=== PATIENT | female | born 2000 | race Caucasian/White ===

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

== ENCOUNTER 2021-06-11 23:17 | Emergency (ER) | payer OTHER, MEDICAID, SELFPAY ==
[2021-06-11 23:29] VITALS: BP 140/90; PULSE 92; RESP 18; TEMP 36.1; O2SAT 96
--- NOTE | 2021-06-12 00:04 | ED.NAVMDI ---
HPI - Nausea/Vomiting/Diarrhea General Chief complaint: Nausea/Vomiting/Diarrhea Stated complaint: nausea/vomiting Time Seen by Provider: 06/11/21 23:35 Source: patient Mode of arrival: Ambulatory History of Present Illness HPI Narrative: 21F nonsmoker with history of cyclic vomiting and cannabis hyperemesis presents with family in the chief complaint of multiple episodes of vomiting over the past few days. She denies any fever chills. She has had no change in medications or diet. She is feeling fatigued and worn out. She has generalized abdominal discomfort. She denies any constipation or diarrhea. She denies dysuria, frequency or urgency. She has had no recent trauma or injury. Related Data Home Medications Medication Instructions Recorded Confirmed bupropion HCl 75 mg tablet 2 tab PO BID #0 07/10/17 12/11/18 trazodone 50 mg tablet PO HS #0 07/10/17 ondansetron 4 mg disintegrating 4 mg SUBLINGUAL Q6HP PRN 12/11/18 12/11/18 tablet (Zofran ODT) Previous Rx's Medication Instructions Recorded ondansetron 4 mg disintegrating 4 mg PO Q6-8H PRN #10 tab 12/11/18 tablet metoclopramide HCl 10 mg tablet 10 mg PO Q6H PRN #20 tab 12/18/18 multivit no.42-iron 38 1 cap PO DAILY #30 cap 01/27/19 mg-methyltetrahydfolate 1 mg-dha 225 mg capsule ondansetron 4 mg disintegrating 4 mg PO Q8H #14 tab 02/11/19 tablet ondansetron 4 mg disintegrating 4 mg PO TID-QID PRN #10 tab 06/12/21 tablet promethazine 25 mg rectal 25 mg SC Q4-6H PRN #12 ea 06/12/21 suppository Allergies Allergy/AdvReac Type Severity Reaction Status Date / Time No Known Allergies Allergy Uncoded 12/11/18 03:29 Patient History Medical History (Updated 06/12/21 @ 04:03 by Hermilo Glass DO) Cannabis hyperemesis syndrome concurrent with and due to cannabis abuse Social History Smoking Status: Never smoker alcohol intake: current substance use type: marijuana Smoking Status: Never smoker alcohol intake frequency: 0-2 drinks per day Substance Use Type: marijuana Exam Narrative Exam Narrative: GENERAL: [21 year old patient appears stated age. Well-developed patient, in mild distress. Clearly not feeling well, holding an emesis bag HEAD: Atraumatic. Normocephalic. EYES: Pupils equal round and reactive. Extraocular motions intact. No scleral icterus. No injection or drainage. ENT: Nose without bleeding, purulent drainage. Throat without erythema, tonsillar hypertrophy or exudate. Airway patent. NECK: Trachea midline. Non tender CARDIOVASCULAR: Regular rate and rhythm without murmurs, gallops, or rubs. RESPIRATORY: Clear to auscultation. Breath sounds equal bilaterally. No wheezes, rales, or rhonchi. GASTROINTESTINAL: Abdomen soft, non-tender, nondistended. EXTREMITIES: No edema or joint tenderness. BACK: Nontender without deformity or crepitance. No flank tenderness. NEURO: AOx3. SKIN: No rash or erythema of visible areas Initial Vital Signs Initial Vital Signs: Vital Signs Temperature 97 F L 06/11/21 23:29 Pulse Rate 92 H 06/11/21 23:29 Respiratory Rate 18 06/11/21 23:29 Blood Pressure 140/90 06/11/21 23:29 Pulse Oximetry 96 06/11/21 23:29 Course Orders Ordered: ED Orders 06/11/21 23:44 Complete Blood Count AUTO DIFF Stat Comprehensive Metabolic Panel Stat Lipase Stat EKG-12 Lead Stat Discontinued Medications Haloperidol (Haloperidol 5 Mg/Ml Vial) 2 mg IV NOW ONE Stop: 06/12/21 02:59 Last Admin: 06/12/21 03:03 Dose: 2 mg Documented by: MANDI Sodium Chloride (Normal Saline 0.9%) 1,000 mls @ 1,000 mls/hr IV BOLUS ONE Stop: 06/12/21 02:22 Last Infusion: 06/12/21 02:40 Dose: 0 mls/hr Documented by: Admin: 06/12/21 01:38 Dose: 1,000 mls/hr Documented by: MANDI Ondansetron HCl (Ondansetron 4 Mg/2 Ml Inj) 4 mg IV NOW ONE Stop: 06/12/21 01:24 Last Admin: 06/12/21 01:38 Dose: 4 mg Documented by: MANDI Ondansetron HCl (Ondansetron 4 Mg Odt Prepack) 1 bottle MISC SEEINSTR ONE Stop: 06/12/21 03:57 Last Admin: 06/12/21 04:07 Dose: 1 bottle Documented by: Pantoprazole Sodium (Pantoprazole 40 Mg Vial) 40 mg IV NOW ONE Stop: 06/12/21 01:24 Last Admin: 06/12/21 01:38 Dose: 40 mg Documented by: MANDI Reevaluation(s) Reevaluation #1: Patient has significant if not complete resolution of symptoms after above-stated therapies. Vital Signs Vital signs: Vital Signs - 8 hr 06/11/21 23:29 Temperature 97 F L Pulse Rate 92 H Respiratory Rate 18 Blood Pressure 140/90 Pulse Oximetry 96 MDM - Nausea/Vomiting/Diarrhea Lab Data Attestation: I reviewed the patient's lab results. Result diagrams: 06/12/21 00:10 06/12/21 00:10 Labs: Lab Results 06/12/21 06/12/21 Range/Units 00:10 00:10 WBC 10.6 (4.5-11.0) X10^3/uL RBC 5.68 H (4.0-5.2) X10^6/uL Hgb 16.5 H (12.0-16.0) g/dL Hct 47.7 H (36-46) % MCV 84.0 (80-100) fL MCH 29.0 (26-34) PG MCHC 34.6 (30-36) % RDW 13.5 (11.6-14.8) % Plt Count 333 (150-400) X10^3/uL Neut % (Auto) 77.4 H (50-75) % Lymph % (Auto) 11.1 L (25-40) % [place] % (Auto) 9.3 (3-14) % Eos % (Auto) 0.1 L (2-4) % Baso % (Auto) 2.1 H (0-2) % Neut # (Auto) 8200 H (4961-5484) /uL Lymph # (Auto) 1200 (6648-4535) /uL [place] # (Auto) 1000 H (0-900) /uL Eos # (Auto) 0 (0-450) /uL Baso # (Auto) 200 H (0-100) /uL Sodium 134 L (137-145) mmol/L Potassium 3.3 L (3.4-5.1) mmol/L Chloride 90 L (98-107) mmol/L Carbon Dioxide 34 H (22-32) mmol/L BUN 20 H (7-17) mg/dL Creatinine 0.85 (0.52-1.04) mg/dL Estimated GFR > 60.0 (>60) mL/min BUN/Creatinine Ratio 23.5 H (6-22) Glucose 117 H (70-100) mg/dL Calcium 9.9 (8.4-10.2) mg/dL Total Bilirubin 2.4 H (0.2-1.3) mg/dL AST 29 (14-36) IU/L ALT 18 (<35) IU/L Alkaline Phosphatase 65 (38-126) U/L Total Protein 9.5 H (6.3-8.2) g/dL Albumin 5.2 H (3.5-5.0) g/dL Globulin 4.3 H (1.7-4.1) g/dL Albumin/Globulin Ratio 1.2 (1.0-2.8) Lipase 87 (23-300) U/L Discharge Plan Departure Patient Disposition: Home Clinical Impression: Cyclic vomiting syndrome Instructions: Nausea and Vomiting-Adult Activity Restrictions/Additional Instructions: *You have been diagnosed with [nausea and vomiting. Your history and physical exam are very reassuring as are her vital signs, labs and response to therapies. *What to do: *Please continue to take your regular medications as directed. [ x] New medication prescriptions sent to your pharmacy: [[facility]] [ ] New medication written as a paper prescription [ ] No new medications given *Please follow up with your primary care provider in 2-3 days, call for an appointment. Let them know you were seen in the Emergency Department and that we ask that you be seen in follow up. We will electronically transmit a record of today's note if your PCP is in our system *Please consider a clear liquid diet for the next 24-48 hours and then advance slowly as tolerated *If you do not have a primary care provider please contact the [facility] Resource line at [phone]. They will ask some questions about your medical history and help get you set up with a doctor in the community. *Return to Emergency Department if you should have any new, worsening or concerning symptoms, such as [fever greater than 101 F, shaking chills, worsening pain, persistent vomiting or other bothersome symptoms] Prescriptions: New ondansetron 4 mg tablet,disintegrating 4 mg PO TID-QID PRN (Reason: nausea and vomiting) Qty: 10 0RF promethazine 25 mg suppository 25 mg SC Q4-6H PRN (Reason: nausea and vomiting) Qty: 12 0RF No Action bupropion HCl 75 MG tablet 2 tab PO BID Qty: 0 0RF trazodone 50 MG tablet PO HS Qty: 0 0RF ondansetron 4 mg tablet,disintegrating 4 mg PO Q8H Qty: 14 0RF ondansetron [Zofran ODT] 4 MG tablet,disintegrating 4 mg Sublingual Q6HP PRN (Reason: Vomiting) 0RF ondansetron 4 mg tablet,disintegrating 4 mg PO Q6-8H PRN (Reason: nausea and vomiting) Qty: 10 0RF metoclopramide HCl 10 mg tablet 10 mg PO Q6H PRN (Reason: nausea and vomiting) Qty: 20 0RF multivit no.29-lsdu-aytmiv-dha 38-1-225 mg capsule 1 cap PO DAILY Qty: 30 0RF Referrals: Davi Thompson MD [Primary Care Provider] -
[2021-06-12 00:38] LABS: Add Manual Diff / Slide Review NO; Basophils Absolute Auto 200 /uL (0-100); Basophils Percent Auto 2.1 % (0-2); Eosinophils Absolute Auto 0 /uL (0-450); Eosinophils Percent Auto 0.1 % (2-4); Hematocrit 47.7 % (36-46); Hemoglobin 16.5 g/dL (12.0-16.0); Lymphocytes Absolute Auto 1200 /uL (1100-4500); Lymphocytes Percent Auto 11.1 % (25-40); Mean Corpuscular HGB Conc 34.6 % (30-36); Monocytes Absolute Auto 1000 /uL (0-900); Monocytes Percent Auto 9.3 % (3-14); Neutrophils Absolute Auto 8200 /uL (1500-7000); Neutrophils Percent Auto 77.4 % (50-75); Platelet Count 333 X10^3/uL (150-400); Red Blood Cell Count 5.68 X10^6/uL (4.0-5.2); Red Cell Distribution Width 13.5 % (11.6-14.8); White Blood Cell Count 10.6 X10^3/uL (4.5-11.0)
[2021-06-12 00:56] LABS: Alanine Aminotransferase 18 IU/L (<35); Albumin 5.2 g/dL (3.5-5.0); Albumin Globulin Ratio 1.2 (1.0-2.8); Alkaline Phosphatase 65 U/L (38-126); Aspartate Aminotransferase 29 IU/L (14-36); BUN Creatinine Ratio 23.5 (6-22); Bilirubin Total 2.4 mg/dL (0.2-1.3); Blood Urea Nitrogen 20 mg/dL (7-17); Calcium 9.9 mg/dL (8.4-10.2); Carbon Dioxide 34 mmol/L (22-32); Chloride 90 mmol/L (98-107); Estimated Glomerular Filt Rate > 60.0 mL/min (>60); Globulin 4.3 g/dL (1.7-4.1); Glucose 117 mg/dL (70-100); HEMOLYSIS 29 (0-50); Lipase 87 U/L (23-300); Potassium 3.3 mmol/L (3.4-5.1); Sodium 134 mmol/L (137-145); Total Protein 9.5 g/dL (6.3-8.2)
[2021-06-12] MEDS: SODIUM CHLORIDE 0.9% 1,000 ML 1000 ML IV (01:38)
[2021-06-12] MEDS: ONDANSETRON 4 MG/2 ML INJ IV (01:38)
[2021-06-12] MEDS: PANTOPRAZOLE 40 MG VIAL IV (01:38)
[2021-06-12] MEDS: HALOPERIDOL 5 MG/ML VIAL 2 MG IV (03:03)
[2021-06-12] MEDS: ONDANSETRON 4 MG ODT PREPACK 1 BOTTLE MISC (04:07)
[2021-06-12 04:16] VITALS: BP 135/86; PULSE 89; RESP 18; O2SAT 97
== END 2021-06-12 04:18 | disposition home or self-care (01) ==
PROVIDERS: Emergency Provider Emergency Medicine; PCP Internal Medicine
DX: R11.15 Cyclical vomiting syndrome unrelated to migraine (principal)
CPT/HCPCS: 36415; 80053; 83690; 85025; 93005; 93010; 96361; 96374; 96375; 99284; C9113; J1630; J2405

== ENCOUNTER 2021-10-03 10:08 | Emergency (ER) | payer OTHER, MEDICAID, SELFPAY ==
[2021-10-03 10:18] VITALS: PULSE 74; O2SAT 98
[2021-10-03 10:19] VITALS: PULSE 76; O2SAT 98
[2021-10-03 10:23] VITALS: BP 159/100; PULSE 70; RESP 18; TEMP 36.4; O2SAT 99
[2021-10-03 10:34] VITALS: BP 147/97
--- NOTE | 2021-10-03 11:00 | ED.NAVMDI ---
HPI - Nausea/Vomiting/Diarrhea General Chief complaint: Nausea/Vomiting/Diarrhea Stated complaint: Vomiting for 6 days,feels like uterus is falling Time Seen by Provider: 10/03/21 10:25 Source: patient Mode of arrival: Family Vehicle History of Present Illness HPI Narrative: 21-year-old female who is here for evaluation of several days/weeks of nausea and vomiting. Patient was seen in outside facility yesterday. Was told that she was . She states there was a bedside ultrasound done. She states that she is been vomiting for several days. She is been sleeping in the shower because had his the only thing that helps her symptoms. She does smoke marijuana on a daily basis. She also states that she feels like her uterus is falling out of her. This has been going on since May. She has seen her primary doctor for this and was told that everything was okay. She was given Zofran and Reglan yesterday without any improvement of symptoms. Was sent home with this medication and has been taking it but also reports no improvement. Related Data Home Medications Medication Instructions Recorded Confirmed bupropion HCl 75 mg tablet 2 tab PO BID ##0 07/10/17 12/11/18 trazodone 50 mg tablet PO HS ##0 07/10/17 ondansetron 4 mg disintegrating 4 mg sublingual Q6HP PRN Vomiting 12/11/18 12/11/18 tablet (Zofran ODT) Previous Rx's Medication Instructions Recorded ondansetron 4 mg disintegrating 4 mg PO Q6-8H PRN nausea and 12/11/18 tablet vomiting #10 tabs metoclopramide HCl 10 mg tablet 10 mg PO Q6H PRN nausea and 12/18/18 vomiting #20 tabs multivit no.42-iron 38 1 cap PO DAILY #30 caps 01/27/19 mg-methyltetrahydfolate 1 mg-dha 225 mg capsule ondansetron 4 mg disintegrating 4 mg PO Q8H Nausea vomiting #14 02/11/19 tablet tabs ondansetron 4 mg disintegrating 4 mg PO TID-QID PRN nausea and 06/12/21 tablet vomiting #10 tabs promethazine 25 mg rectal 25 mg HI Q4-6H PRN nausea and 06/12/21 suppository vomiting #12 ea Allergies Allergy/AdvReac Type Severity Reaction Status Date / Time No Known Allergies Allergy Verified 10/03/21 11:08 Review of Systems Constitutional Constitutional: Denies fever(s) Cardiovascular Cardiovascular: Reports chest pain and Reports dyspnea Respiratory Respiratory: Reports dyspnea Gastrointestinal Gastrointestinal: Reports abdominal pain, Reports diarrhea, Reports nausea and Reports vomiting Genitourinary Genitourinary: Reports system reviewed and no additional complaints, except as documented Integumentary/Breasts Skin/Breast: Reports system reviewed and no additional complaints, except as documented Psychiatric Psychiatric: Reports system reviewed and no additional complaints, except as documented Hematologic/Lymphatic On Anticoagulants: No Patient History Medical History (Updated 10/03/21 @ 13:20 by Davide Anderson DO) Cannabis hyperemesis syndrome concurrent with and due to cannabis abuse Social History Smoking Status: Current every day smoker alcohol intake: current substance use type: marijuana Smoking Status: Current every day smoker tobacco type: cigarettes and vaping alcohol intake frequency: 0-2 drinks per day Alcohol type: hard liquor Substance Use Type: marijuana Exam Initial Vital Signs Initial Vital Signs: Vital Signs Pulse Rate 74 10/03/21 10:18 Pulse Oximetry 98 10/03/21 10:18 Const General: cooperative and comfortable HENMT Head: normal to inspection and normocephalic Resp Effort & Inspection: normal respiratory effort Auscultation: clear to auscultation bilaterally Cardio Rate: regular rate Rhythm: regular rhythm GI Inspection: normal to inspection Other: On exam there is no uterine prolapse. Cervix is closed. Rest of her vaginal exam is unremarkable Skin General: no rashes or lesions noted Neuro General: patient alert, patient awake and moves all extremities Extrem General: normal to inspection Psych Appearance: grossly normal Mood: anxious mood Course Orders Ordered: ED Orders 10/03/21 11:01 US OB <= 14 weeks fetus Stat 10/03/21 11:40 ABO RH Type Stat Complete Blood Count AUTO DIFF Stat Comprehensive Metabolic Panel Stat HCG Quantitative /Beta subunit Stat Lipase Stat Test Serum,Qual Stat 10/03/21 12:08 Urine Culture Stat Urine Microscopic Stat Discontinued Medications Sodium Chloride (Normal Saline 0.9%) 1,000 mls @ 1,000 mls/hr IV BOLUS ONE Stop: 10/03/21 11:59 Last Admin: 10/03/21 11:44 Dose: 1,000 mls/hr Documented By: AT Ondansetron HCl (Ondansetron 4 Mg/2 Ml Inj) 4 mg IV NOW ONE Stop: 10/03/21 11:01 Last Admin: 10/03/21 11:43 Dose: 4 mg Documented By: AT Vital Signs Vital signs: Vital Signs - 8 hr 10/03/21 10:23 10/03/21 10:18 10/03/21 10:19 Temperature 97.5 F L Pulse Rate 70 74 76 Respiratory Rate 18 Blood Pressure 159/100 H Pulse Oximetry 99 98 98 Oxygen Delivery Method Room Air 10/03/21 10:34 10/03/21 12:01 10/03/21 12:30 Temperature Pulse Rate 59 L 59 L Respiratory Rate Blood Pressure 147/97 H Pulse Oximetry 96 100 Oxygen Delivery Method Room Air Room Air MDM - Nausea/Vomiting/Diarrhea Lab Data Attestation: I reviewed the patient's lab results. Result diagrams: 10/03/21 11:40 10/03/21 11:40 Labs: Lab Results 10/03/21 10/03/21 10/03/21 Range/Units 11:40 11:40 11:40 WBC 13.2 H (4.5-11.0) X10^3/uL RBC 4.90 (4.0-5.2) X10^6/uL Hgb 14.3 (12.0-16.0) g/dL Hct 40.7 (36-46) % MCV 83.0 (80-100) fL MCH 29.2 (26-34) PG MCHC 35.2 (30-36) % RDW 13.0 (11.6-14.8) % Plt Count 264 (150-400) X10^3/uL Neut % (Auto) 78.8 H (50-75) % Lymph % (Auto) 13.0 L (25-40) % [place] % (Auto) 7.9 (3-14) % Eos % (Auto) 0.0 L (2-4) % Baso % (Auto) 0.3 (0-2) % Neut # (Auto) 75130 H (3796-6691) /uL Lymph # (Auto) 1700 (3350-4371) /uL [place] # (Auto) 1000 H (0-900) /uL Eos # (Auto) 0 (0-450) /uL Baso # (Auto) 0 (0-100) /uL Sodium 134 L (137-145) mmol/L Potassium 3.2 L (3.4-5.1) mmol/L Chloride 99 (98-107) mmol/L Carbon Dioxide 26 (22-32) mmol/L BUN 9 (7-17) mg/dL Creatinine 0.62 (0.52-1.04) mg/dL Estimated GFR > 60 (>60) mL/min BUN/Creatinine Ratio 14.5 (6-22) Glucose 102 H (70-100) mg/dL Calcium 9.2 (8.4-10.2) mg/dL Total Bilirubin 1.7 H (0.2-1.3) mg/dL AST 45 H (14-36) IU/L ALT 50 H (<35) IU/L Alkaline Phosphatase 52 (38-126) U/L Total Protein 7.9 (6.3-8.2) g/dL Albumin 4.5 (3.5-5.0) g/dL Globulin 3.4 (1.7-4.1) g/dL Albumin/Globulin Ratio 1.3 (1.0-2.8) Lipase 105 (23-300) U/L HCG, Quant mIU/mL Serum , Qual (Negative) Urine RBC (0-5/HPF) Urine WBC (0-5/HPF) Ur Squamous Epith Cells (0-5/HPF) Amorphous Sediment Urine Bacteria (None) Urine Mucus (Negative) Ur Culture Indicated? Blood Type O Positive 10/03/21 10/03/21 10/03/21 Range/Units 11:40 11:40 12:08 WBC (4.5-11.0) X10^3/uL RBC (4.0-5.2) X10^6/uL Hgb (12.0-16.0) g/dL Hct (36-46) % MCV (80-100) fL MCH (26-34) PG MCHC (30-36) % RDW (11.6-14.8) % Plt Count (150-400) X10^3/uL Neut % (Auto) (50-75) % Lymph % (Auto) (25-40) % [place] % (Auto) (3-14) % Eos % (Auto) (2-4) % Baso % (Auto) (0-2) % Neut # (Auto) (7222-8617) /uL Lymph # (Auto) (7274-5110) /uL [place] # (Auto) (0-900) /uL Eos # (Auto) (0-450) /uL Baso # (Auto) (0-100) /uL Sodium (137-145) mmol/L Potassium (3.4-5.1) mmol/L Chloride (98-107) mmol/L Carbon Dioxide (22-32) mmol/L BUN (7-17) mg/dL Creatinine (0.52-1.04) mg/dL Estimated GFR (>60) mL/min BUN/Creatinine Ratio (6-22) Glucose (70-100) mg/dL Calcium (8.4-10.2) mg/dL Total Bilirubin (0.2-1.3) mg/dL AST (14-36) IU/L ALT (<35) IU/L Alkaline Phosphatase (38-126) U/L Total Protein (6.3-8.2) g/dL Albumin (3.5-5.0) g/dL Globulin (1.7-4.1) g/dL Albumin/Globulin Ratio (1.0-2.8) Lipase (23-300) U/L HCG, Quant 384815 mIU/mL Serum , Qual Positive H (Negative) Urine RBC None seen (0-5/HPF) Urine WBC 1-5/hpf (0-5/HPF) Ur Squamous Epith Cells 1-5 /hpf (0-5/HPF) Amorphous Sediment 1+ Urine Bacteria Many (>30) H (None) Urine Mucus 1+ H D (Negative) Ur Culture Indicated? Cult not indicated Blood Type Urine Dip Bedside Urine Glucose Negative Bedside Urine Bilirubin - Negative Bedside Urine Ketone + 15 Urine Specific [place] 1.010 Bedside Urine Occult Blood - Negative Bedside Urine pH 7.0 Bedside Urine Protein + 30 Bedside Urine Urobilinogen 2+ 4mg Bedside Urine Nitrite - Negative Bedside Urine Leukocytes - Negative Esterase Imaging Data US - OB: Radiologist's Impression: [address] [address] Ultrasound Report Signed Patient: Sherly Powers MR#: [id number] : 2000 Acct:[id number] Age/Sex: 21 / F Date of Service: 10/03/21 Loc: ED Accession Number: [id number] ?? Procedure: US OB <= 14 weeks fetus Ordering Provider: Davide Anderson D.O. PROCEDURE:? US OB <= 14 WEEKS FETUS ? INDICATIONS:? hcg pos with pelvic pain UKN dates ? OUTSIDE/PRIOR DATING DATA:? Last menstrual period (LMP):? Unknown.? LMP-based estimated date of delivery (RAY):? Unknown.? First dating scan (date and location):? 10/03/2021 ? TECHNIQUE:? Real-time scanning was performed of the fetus and maternal pelvic organs, with image documentation.? Endovaginal scanning was also performed to better visualize the fetus and maternal ovaries.? ? COMPARISON:? None. ? FINDINGS:? ? Embryo:? [place]-rump length measures 3.8 cm corresponding with 10 weeks 5 days.? No subchorionic hemorrhage is identified. ? Heart rate:? 173 beats per minute ? Maternal organs:? The right ovary has a corpus luteal cyst. ? ? IMPRESSION:? 1. Live intrauterine with a composite ultrasound age of 10 weeks 5 days by crown-rump length. 2. No subchorionic hemorrhage.? ? We strive to produce accurate, complete, and clear reports of imaging services. To assist us in improving patient care, this report was composed using standard report templates and voice recognition software. Therefore, it may contain abnormal punctuation, insertions and/or omissions. Occasional wrong-word or sound-alike substitutions may occur. Though we review the report and make efforts to correct it, we do recommend that the report be read carefully in proper context to recognize any text inaccuracies. ? Dictated by: Beau Millard M.D. on 10/03/2021 at 11:45 ? ? Approved by: Beau Millard M.D. on 10/03/2021 at 11:48 MDM Narrative Medical decision making narrative: Patient did feel better after Zofran and fluids although she did have some continued episodes of retching after this. She stated that she did feel hungry. Ultrasound today does show that she is and has 10 weeks 5 day live intrauterine . She was informed of this. She has a follow-up with OB in approximately 2 weeks from now. This is her 3rd . She has had issues with hyperemesis with in the past and smoking marijuana is not helping her symptoms. She was informed of this. She has Reglan and Zofran and Phenergan suppositories at home. No indication for admission to the hospital. Discharge Plan Departure Patient Disposition: Home Clinical Impression: , Nausea and vomiting during Instructions: Nausea and Vomiting-Adult Activity Restrictions/Additional Instructions: The ultrasound today did show that you are and are approximately 10 weeks and 5 days along. It is important that you stay as hydrated as possible. Sure that you are drinking small amounts of fluid over longer periods of time and using a nausea medicine that you have at home to try to help with this. Keep your scheduled OB appointment that you have on the of this month. I do recommend that you consider stopping smoking marijuana has this could be causing or worsening the symptoms that you are having. Return to the emergency department for any new symptoms. Prescriptions: No Action bupropion HCl 75 MG tablet 2 tab PO BID Qty: 0 trazodone 50 MG tablet PO HS Qty: 0 ondansetron 4 mg tablet,disintegrating 4 mg PO Q8H Qty: 14 0RF ondansetron 4 mg tablet,disintegrating 4 mg PO TID-QID PRN (Reason: nausea and vomiting) Qty: 10 0RF promethazine 25 mg suppository 25 mg HI Q4-6H PRN (Reason: nausea and vomiting) Qty: 12 0RF ondansetron [Zofran ODT] 4 MG tablet,disintegrating 4 mg Sublingual Q6HP PRN (Reason: Vomiting) ondansetron 4 mg tablet,disintegrating 4 mg PO Q6-8H PRN (Reason: nausea and vomiting) Qty: 10 0RF metoclopramide HCl 10 mg tablet 10 mg PO Q6H PRN (Reason: nausea and vomiting) Qty: 20 0RF multivit no.[id number] 38-1-225 mg capsule 1 cap PO DAILY Qty: 30 0RF Referrals: Davi Thompson MD [Primary Care Provider] -
--- NOTE | 2021-10-03 11:01 | DI.US.S_ITS ---
PROCEDURE: US OB <= 14 WEEKS FETUS INDICATIONS: hcg pos with pelvic pain UKN dates OUTSIDE/PRIOR DATING DATA: Last menstrual period (LMP): Unknown. LMP-based estimated date of delivery (RAY): Unknown. First dating scan (date and location): 10/03/2021 TECHNIQUE: Real-time scanning was performed of the fetus and maternal pelvic organs, with image documentation. Endovaginal scanning was also performed to better visualize the fetus and maternal ovaries. COMPARISON: None. FINDINGS: Embryo: [place]-rump length measures 3.8 cm corresponding with 10 weeks 5 days. No subchorionic hemorrhage is identified. Heart rate: 173 beats per minute Maternal organs: The right ovary has a corpus luteal cyst. IMPRESSION: 1. Live intrauterine with a composite ultrasound age of 10 weeks 5 days by crown-rump length. 2. No subchorionic hemorrhage. We strive to produce accurate, complete, and clear reports of imaging services. To assist us in improving patient care, this report was composed using standard report templates and voice recognition software. Therefore, it may contain abnormal punctuation, insertions and/or omissions. Occasional wrong-word or sound-alike substitutions may occur. Though we review the report and make efforts to correct it, we do recommend that the report be read carefully in proper context to recognize any text inaccuracies. Dictated by: Beau Millard M.D. on 10/03/2021 at 11:45 Approved by: Beau Millard M.D. on 10/03/2021 at 11:48
[2021-10-03] MEDS: ONDANSETRON 4 MG/2 ML INJ IV (11:43)
[2021-10-03] MEDS: SODIUM CHLORIDE 0.9% 1,000 ML 1000 ML IV (11:44)
[2021-10-03 11:50] LABS: Add Manual Diff / Slide Review NO; Basophils Absolute Auto 0 /uL (0-100); Basophils Percent Auto 0.3 % (0-2); Eosinophils Absolute Auto 0 /uL (0-450); Hematocrit 40.7 % (36-46); Hemoglobin 14.3 g/dL (12.0-16.0); Lymphocytes Absolute Auto 1700 /uL (1100-4500); Mean Corpuscular HGB Conc 35.2 % (30-36); Mean Corpuscular Hemoglobin 29.2 PG (26-34); Monocytes Absolute Auto 1000 /uL (0-900); Monocytes Percent Auto 7.9 % (3-14); Neutrophils Absolute Auto 10400 /uL (1500-7000); Neutrophils Percent Auto 78.8 % (50-75); Platelet Count 264 X10^3/uL (150-400); White Blood Cell Count 13.2 X10^3/uL (4.5-11.0)
[2021-10-03 12:01] VITALS: PULSE 59; O2SAT 96
[2021-10-03 12:02] LABS: Alanine Aminotransferase 50 IU/L (<35); Albumin 4.5 g/dL (3.5-5.0); Albumin Globulin Ratio 1.3 (1.0-2.8); Alkaline Phosphatase 52 U/L (38-126); Aspartate Aminotransferase 45 IU/L (14-36); BUN Creatinine Ratio 14.5 (6-22); Bilirubin Total 1.7 mg/dL (0.2-1.3); Blood Urea Nitrogen 9 mg/dL (7-17); Calcium 9.2 mg/dL (8.4-10.2); Carbon Dioxide 26 mmol/L (22-32); Chloride 99 mmol/L (98-107); Estimated Glomerular Filt Rate > 60 mL/min (>60); Globulin 3.4 g/dL (1.7-4.1); Glucose 102 mg/dL (70-100); HEMOLYSIS < 15 (0-50); Lipase 105 U/L (23-300); Potassium 3.2 mmol/L (3.4-5.1); Sodium 134 mmol/L (137-145); Total Protein 7.9 g/dL (6.3-8.2)
[2021-10-03 12:08] LABS: Pregnancy Test Serum,Qual Positive (Negative)
[2021-10-03 12:30] VITALS: PULSE 59; O2SAT 100
[2021-10-03 12:31] LABS: Amorphous Sediment Urine 1+; Bacteria Urine Many (>30); Culture Indicated Urine Cult Not Indicated; Mucus Urine 1+ (Negative); RBC Urine None Seen (0-5/HPF); Squamous Epithelial Cell Urine 1-5 /HPF (0-5/HPF); WBC Urine 1-5/HPF (0-5/HPF)
[2021-10-03 12:54] LABS: HCG Quantitative /Beta subunit 118550 mIU/mL
== END 2021-10-03 13:34 | disposition home or self-care (01) ==
PROVIDERS: Emergency Provider Emergency Medicine; PCP Internal Medicine
DX: O21.9 Vomiting of pregnancy, unspecified (principal); R07.9 Chest pain, unspecified; R06.00 Dyspnea, unspecified; Z3A.10 10 weeks gestation of pregnancy
CPT/HCPCS: 36415; 76801; 76817; 80053; 81003; 81015; 83690; 84702; 84703; 85025; 86900; 86901; 87086; 96361; 96374; 99284; J2405

== ENCOUNTER 2021-11-18 14:32 | Outpatient (CLI) | payer OTHER, MEDICAID, SELFPAY | END 2021-11-22 12:52 | disposition home or self-care (01) | LOC: PHYS 14:33 | PROVIDERS: Family Provider Internal Medicine; PCP Internal Medicine; Referring Provider Internal Medicine; Visit Provider Internal Medicine | DX: R20.0 Anesthesia of skin (principal); G57.52 Tarsal tunnel syndrome, left lower limb | CPT/HCPCS: 95886; 95911 ==

== ENCOUNTER 2024-02-20 11:02 | Emergency (ER) | payer OTHER, MEDICAID, SELFPAY ==
[2024-02-20 11:17] VITALS: BP 168/105; PULSE 105; RESP 24; O2SAT 96; BMI 40.6
[2024-02-20 13:11] LABS: Add Manual Diff / Slide Review YES; Hematocrit 44.3 % (36-46); Hemoglobin 15.2 g/dL (12.0-16.0); Mean Corpuscular HGB Conc 34.4 % (30-36); Mean Corpuscular Hemoglobin 31.1 PG (26-34); Mean Corpuscular Volume 90.4 fL (80-100); Platelet Count 332 X10^3/uL (150-400); Red Cell Distribution Width 13.7 % (11.6-14.8); White Blood Cell Count 19.5 X10^3/uL (4.5-11.0)
--- NOTE | 2024-02-20 13:20 | PC.NURSE ---
Patient pacing in room. Earlier had been given a cup with the understanding that she would not drink the water. Patient admitted to drinking the water when I entered the room for an assessment to have something to throw up. Took cup away from patient and educated to not drink water. Patient states she is diagnosed with cyclic vomiting since the age of 15 but does not see a specialist and is not prescribed regular medications by primary. Patient does not know the name of her primary, states on [address]. Patient states everything makes vomiting worse including trying to have BM and walking around is only thing that helps. Patient c/o stomach pain and throat pain from vomiting. States that she was still vomiting when she left [facility] ER this morning.
[2024-02-20 13:23] LABS: Neutrophils Absolute Manual 17940 /uL (3000-5900); RBC Morphology Normal Morphology; Total Cells Counted 100
[2024-02-20 13:28] LABS: Alanine Aminotransferase 40 IU/L (<35); Albumin 4.8 g/dL (3.5-5.0); Albumin Globulin Ratio 1.3 (1.0-2.8); Alkaline Phosphatase 81 U/L (38-126); Aspartate Aminotransferase 42 IU/L (14-36); BUN Creatinine Ratio 15.8 (6-22); Bilirubin Total 1.6 mg/dL (0.2-1.3); Blood Urea Nitrogen 16 mg/dL (7-17); Calcium 9.8 mg/dL (8.4-10.2); Carbon Dioxide 21 mmol/L (22-32); Chloride 101 mmol/L (98-107); Estimated Glomerular Filt Rate > 60 mL/min (>60); Globulin 3.6 g/dL (1.7-4.1); Glucose 137 mg/dL (70-100); HEMOLYSIS < 15 (0-50); Potassium 3.5 mmol/L (3.4-5.1); Sodium 135 mmol/L (137-145); Total Protein 8.4 g/dL (6.3-8.2)
[2024-02-20 13:45] LABS: Bacteria Urine None Seen; Culture Indicated Urine Cult Not Indicated; Granular Casts Urine 0-1/LPF; Hyaline Casts Urine 1-5/LPF; RBC Urine 0-1/HPF (0-5/HPF); Renal Epithelial Cells Urine 0-1/HPF (0-1/HPF); Squamous Epithelial Cell Urine 0-1 /HPF (0-5/HPF); Transitional Epi Cells Urine 0-1/HPF (0-5/HPF); Urine Volume 10mL (spun); WBC Urine 0-1/HPF (0-5/HPF)
--- NOTE | 2024-02-20 14:21 | PC.NURSE ---
Patient requesting to leave. Have been unable to recheck vitals while patient has been in the room d/t pacing and intermittent vomiting. Educated patient on staying, patient and assert they want to leave.
== END 2024-02-20 14:20 | disposition left against medical advice (07) ==
PROVIDERS: Emergency Provider Emergency Medicine; Family Provider Internal Medicine; PCP Internal Medicine
DX: R11.15 Cyclical vomiting syndrome unrelated to migraine (principal)
CPT/HCPCS: 36415; 80053; 81003; 81015; 81025; 85007; 85025; 99283

== ENCOUNTER 2024-02-22 12:53 | Emergency (ER) | payer OTHER, MEDICAID, SELFPAY ==
[2024-02-22] VITALS (10 sets, daily range): BP systolic 153–172; BP diastolic 102–114; PULSE 54–82; RESP 17–22; TEMP 36.8; O2SAT 97–100; BMI 42.0
--- NOTE | 2024-02-22 13:01 | ED_ITS ---
HPI - General Adult General Chief complaint: Abdominal Pain Stated complaint: cyclic vomitting since monday Time Seen by Provider: 02/22/24 12:57 History of Present Illness HPI narrative: 23-year-old woman with regular daily cannabinoid use since the age of 15 presents with continued hyperemesis. She has been vomiting this episode since the . She was seen at [facility] comes back today because she continues to vomit. There was definitely some cognitive clouding continues to complain of increased abdominal pain. She is fairly convinced she does not have cannabinoid hyperemesis syndrome as holding marijuana for 2 weeks at one point in the past just made her more sick. she notes that standing and hot showers the only thing that seems to help. She was given promethazine rectal suppositories from her recent [facility] ER visit. She finds that they have not been helpful. She complains of vomiting fairly consistently since the , has not had a bowel movement since then. Complains of abdominal pain from the effort of vomiting but no back flank pain. No palpitations. Related Data Home Medications Medication Instructions Recorded Confirmed bupropion HCl 75 mg tablet 2 tab PO BID ##0 07/10/17 12/11/18 trazodone 50 mg tablet PO HS ##0 07/10/17 ondansetron 4 mg disintegrating 4 mg sublingual Q6HP PRN Vomiting 12/11/18 12/11/18 tablet (Zofran ODT) Previous Rx's Medication Instructions Recorded ondansetron 4 mg disintegrating 4 mg PO Q6-8H PRN nausea and 12/11/18 tablet vomiting #10 tabs metoclopramide HCl 10 mg tablet 10 mg PO Q6H PRN nausea and 12/18/18 vomiting #20 tabs multivit no.42-iron 38 1 cap PO DAILY #30 caps 01/27/19 mg-methyltetrahydfolate 1 mg-dha 225 mg capsule ondansetron 4 mg disintegrating 4 mg PO Q8H Nausea vomiting #14 02/11/19 tablet tabs ondansetron 4 mg disintegrating 4 mg PO TID-QID PRN nausea and 06/12/21 tablet vomiting #10 tabs promethazine 25 mg rectal 25 mg RI Q4-6H PRN nausea and 06/12/21 suppository vomiting #12 ea haloperidol 2 mg tablet 2 mg PO TID PRN nausea #30 tabs 02/22/24 Allergies Allergy/AdvReac Type Severity Reaction Status Date / Time No Known Allergies Allergy Verified 02/22/24 13:00 Review of Systems Review of Systems Narrative: Pertinent positive and negative findings as per HPI Patient History Medical History (Updated 02/22/24 @ 16:26 by Ayesha Panchal MD) Cannabis hyperemesis syndrome concurrent with and due to cannabis abuse Social History Smoking Status: Current every day smoker alcohol intake: current substance use type: marijuana Smoking Status: Current every day smoker tobacco type: cigarettes and vaping alcohol intake frequency: 0-2 drinks per day Alcohol type: hard liquor Substance Use Type: marijuana Exam Initial Vital Signs Initial Vital Signs: Vital Signs Pulse Rate 78 02/22/24 12:58 Pulse Oximetry 98 02/22/24 12:58 General: Fatigued but in no acute distress. Able to give a complete and coherent history. Well-nourished well-developed HEENT: Moist mucous membranes, normal sclera with reactive pupils, Respiratory: Lungs are clear to auscultation, no wheezing no rales no rhonchi. Full and symmetrical air movement Cardiac: Regular rate and rhythm no murmurs no bruits Abdomen: Soft, nontender, good bowel tones, no flank pain Skin: Warm and dry, no rashes Neurologic: Grossly neurologically intact with no obvious asymmetries or abnormalities Extremities: No trauma, well perfused Psych: Cooperative, appropriate insight and affect Course Orders Ordered: ED Orders 02/22/24 13:40 Complete Blood Count AUTO DIFF Stat Comprehensive Metabolic Panel Stat Lactate (Lactic Acid) Stat Lipase Stat Magnesium Stat 02/22/24 13:43 CT abdomen pelvis w con Stat Discontinued Medications Diphenhydramine HCl (Diphenhydramine 50 Mg/Ml Vial) 25 mg IV NOW ONE Stop: 02/22/24 13:43 Last Admin: 02/22/24 13:48 Dose: 25 mg Documented By: SAADIA Droperidol (Droperidol 5 Mg/2 Ml Vial) 2.5 mg IV NOW ONE Stop: 02/22/24 13:20 Last Admin: 02/22/24 13:48 Dose: Not Given Documented By: SAADIA Haloperidol (Haloperidol 5 Mg/Ml Vial) 2 mg IV NOW ONE Stop: 02/22/24 13:43 Last Admin: 02/22/24 13:49 Dose: 2 mg Documented By: SAADIA Sodium Chloride (Normal Saline 0.9%) 1,000 mls @ 1,000 mls/hr IV BOLUS ONE Stop: 02/22/24 14:18 Last Infusion: 02/22/24 15:00 Dose: Infused Documented By: Admin: 02/22/24 13:46 Dose: 1,000 mls/hr Documented By: SAADIA Vital Signs Vital signs: Vital Signs - 8 hr 02/22/24 12:58 02/22/24 13:00 02/22/24 13:00 Temperature 98.2 F Pulse Rate 78 82 Respiratory Rate 17 Blood Pressure 169/110 H 166/113 H Pulse Oximetry 98 100 Oxygen Delivery Method Room Air 02/22/24 13:00 02/22/24 13:17 02/22/24 13:17 Temperature Pulse Rate 81 77 Respiratory Rate 22 Blood Pressure 172/110 H Pulse Oximetry 98 99 Oxygen Delivery Method Room Air 02/22/24 13:30 02/22/24 13:35 02/22/24 13:35 Temperature Pulse Rate 65 73 Respiratory Rate Blood Pressure 157/114 H Pulse Oximetry 97 98 Oxygen Delivery Method 02/22/24 14:00 02/22/24 14:00 02/22/24 14:22 Temperature Pulse Rate 79 72 Respiratory Rate 17 Blood Pressure 167/111 H Pulse Oximetry 98 98 Oxygen Delivery Method 02/22/24 14:22 02/22/24 14:30 02/22/24 14:30 Temperature Pulse Rate 54 L Respiratory Rate Blood Pressure 153/104 H 156/102 H Pulse Oximetry 98 Oxygen Delivery Method Room Air 02/22/24 15:00 02/22/24 15:00 02/22/24 15:30 Temperature Pulse Rate 60 62 Respiratory Rate Blood Pressure 161/105 H Pulse Oximetry 97 97 Oxygen Delivery Method Medical Decision Making Lab Data 02/22/24 13:40 02/22/24 13:40 Labs: Lab Results 02/22/24 Range/Units 13:40 WBC 9.9 (4.5-11.0) X10^3/uL RBC 4.61 (4.0-5.2) X10^6/uL Hgb 14.5 (12.0-16.0) g/dL Hct 41.6 (36-46) % MCV 90.3 (80-100) fL MCH 31.4 (26-34) PG MCHC 34.8 (30-36) % RDW 13.2 (11.6-14.8) % Plt Count 279 (150-400) X10^3/uL Neut % (Auto) 78.0 H (50-75) % Lymph % (Auto) 12.0 L (25-40) % Bryan % (Auto) 9.4 (3-14) % Eos % (Auto) 0.4 L (2-4) % Baso % (Auto) 0.2 (0-2) % Neut # (Auto) 7700 H (2561-5860) /uL Lymph # (Auto) 1200 (5715-3519) /uL Bryan # (Auto) 900 (0-900) /uL Eos # (Auto) 0 (0-450) /uL Baso # (Auto) 0 (0-100) /uL Sodium 135 L (137-145) mmol/L Potassium 3.2 L (3.4-5.1) mmol/L Chloride 101 (98-107) mmol/L Carbon Dioxide 24 (22-32) mmol/L BUN 14 (7-17) mg/dL Creatinine 0.96 (0.52-1.04) mg/dL Estimated GFR > 60 (>60) mL/min BUN/Creatinine Ratio 14.6 (6-22) Glucose 103 H (70-100) mg/dL Lactate 0.8 (0.7-2.1) mmol/L Calcium 9.1 (8.4-10.2) mg/dL Magnesium 2.0 (1.6-2.3) mg/dL Total Bilirubin 1.7 H (0.2-1.3) mg/dL AST 86 H (14-36) IU/L ALT 45 H (<35) IU/L Alkaline Phosphatase 52 (38-126) U/L Total Protein 7.4 (6.3-8.2) g/dL Albumin 4.3 (3.5-5.0) g/dL Globulin 3.1 (1.7-4.1) g/dL Albumin/Globulin Ratio 1.4 (1.0-2.8) Lipase 86 (23-300) U/L MDM Narrative Medical decision making narrative: CC: cyclic vomiting, episode ongoing for greater than 72 hours, 3rd ER visit for same Complicating co-morbidities: patient believes she has cyclic vomiting syndrome, patient has been smoking daily marijuana since age of 15 Data collected from: patient Medical records reviewed: notes from your visit to [facility] on the and are reviewed. in reviewing records, it appears that the last time that she had any type of abdominal imaging was in 2019 Differential considered: Cannabinoid hyperemesis syndrome, other cyclic vomiting syndrome, possible bowel obstruction, intra-abdominal abscess, pancreatitis Exam documented above, pertinent findings include: patient appears to feel unwell but not acutely toxic. Abdomen is as tender as I would expect after vomiting for multiple days in a row but certainly not an acute abdomen or localized symptoms Lab Test results independently reviewed as above. Pertinent findings: CBC is unremarkable. Leukocytosis that has been appreciated on the has resolved chemistries are notable for slightly low potassium at 3.2. Normal renal function. Liver studies show consistently Oswaldo dated bilirubin at 1.7. AST and ALT are slightly elevated 86 and 45. the LFTs studies are slightly higher in the last 48 hours Discussion: after fluids, Haldol, Benadryl patient is feeling better. She has a full to keep down a full container of Gatorade and some crackers. We discussed her symptoms and agree that discharge home at this time would be safe. Reviewed findings of normal CT scan. Also further discussed cannabinoid hyperemesis syndrome. Recommended additional home research and holding we would for 3 months. She was open to the idea. Please see discharge instructions for further details. we talked about using Haldol as antiemetic. Zofran Reglan, Phenergan have not been helpful so far at home. She notes that she is bipolar and was supposed to start Lamictal, the Haldol may actually be helpful in controlling mood swings and make it easier for her to avoid continued marijuana use. This time there is no indication for additional imaging or hospitalization. She has a follow up appointment with her primary care physician in about 2 weeks.She is safe for discharge Discharge Plan Departure Patient Disposition: Home Clinical Impression: Cannabis hyperemesis syndrome concurrent with and due to cannabis abuse Instructions: DI for Cyclic Vomiting Syndrome-Adult Activity Restrictions/Additional Instructions: I am sorry that you are struggling so much with this persistent vomiting your workup today was fairly reassuring. Your potassium level was slightly low and that may explain some of the cramping that you are having. You do have some mild liver abnormality changes likely from persistent vomiting that we will need to be followed up at some point in the future with your primary care physician I have given you a prescription for Haldol. In large doses this is a medication that we sometimes use to treat annelise, bipolar disorder and acute psychosis. In smaller doses it can be 1 of the only medications that is actually helpful in controlling nausea with cyclic vomiting and cannabinoid hyperemesis syndrome We did do a CT scan of your abdomen today as your symptoms have been going on for [address] scan of your abdomen was very normal. Regarding the cannabinoid hyperemesis syndrome, I am going to suggest that you do some additional research. Please goggle [employer], this is an online magazine related to the news culture and politics of weed. once you were there, look up cannabinoid hyperemesis syndrome. They have some great articles and some great forms and further discussion a people who have been there done that and know what they are talking about. I would strongly recommend avoiding weed for a full 3 months. When you have been using it regularly for years it can take at least that long to get completely out of your system. I would recommend rehydrating solution such as liquid IV, Gatorade or similar products. this can help with both salt and potassium replacement As your starting to drink fluids, small sips repeatedly rather than large glasses of water all at 1 time will be helpful If you find that you are getting worse or develop any new symptoms, please feel free to return to the emergency department for further evaluation. Prescriptions: New haloperidol 2 mg tablet 2 mg PO TID PRN (Reason: nausea) Qty: 30 0RF No Action bupropion HCl 75 MG tablet 2 tab PO BID Qty: 0 trazodone 50 MG tablet PO HS Qty: 0 ondansetron 4 mg tablet,disintegrating 4 mg PO Q8H Qty: 14 0RF ondansetron 4 mg tablet,disintegrating 4 mg PO TID-QID PRN (Reason: nausea and vomiting) Qty: 10 0RF promethazine 25 mg suppository 25 mg RI Q4-6H PRN (Reason: nausea and vomiting) Qty: 12 0RF ondansetron [Zofran ODT] 4 MG tablet,disintegrating 4 mg Sublingual Q6HP PRN (Reason: Vomiting) ondansetron 4 mg tablet,disintegrating 4 mg PO Q6-8H PRN (Reason: nausea and vomiting) Qty: 10 0RF metoclopramide HCl 10 mg tablet 10 mg PO Q6H PRN (Reason: nausea and vomiting) Qty: 20 0RF multivit no.37-rtoq-solgxq-dha 38-1-225 mg capsule 1 cap PO DAILY Qty: 30 0RF Referrals: Davi Thompson MD [Primary Care Provider] - Stand Alone Forms: Patient Portal/API/Survey
--- NOTE | 2024-02-22 13:43 | DI.CT.S_ITS ---
PROCEDURE: CT ABDOMEN PELVIS W CON INDICATIONS: persistent nausea and vomitting TECHNIQUE: After the administration of intravenous contrast, axial sections acquired from the lung bases to the pubic symphysis. Coronal and sagittal reformats were performed. For radiation dose reduction, the following was used: automated exposure control, adjustment of mA and/or kV according to patient size. COMPARISON: [facility], CT, CT ABDOMEN PELVIS W CON, 12/11/2018, 7:40. FINDINGS: Image quality: Diagnostic. Lower Chest: No significant findings. ABDOMEN: Liver: No solid mass. Steatosis. Gallbladder: No radiopaque gallstones or wall thickening. Biliary ducts: No biliary dilation. Pancreas: No ductal dilation. Spleen: Size is within normal limits. Adrenal Glands: No adrenal nodules. Kidneys and Ureters: No hydronephrosis. No solid mass. No complex renal cystic lesion which requires follow up. Stomach and Bowel: Normal colonic caliber, without significant wall thickening. Hiatal hernia. Appendix is normal. Peritoneum: No abnormal intraperitoneal fluid. No free air. Ventral Wall: Fat containing ventral hernia. Abdominal Nodes: No retroperitoneal or mesenteric adenopathy by size criteria. Vessels: Aorta and inferior vena cava are normal in size. PELVIS: Pelvic Organs: Unremarkable. Bladder: No bladder wall thickening, accounting for underdistention. Pelvic Nodes: No enlarged lymph nodes. Miscellaneous: No inguinal hernias are seen. Bones: No aggressive osseous abnormality. IMPRESSION: Nonobstructive gas pattern. Hepatic steatosis. Dictated by: Mariza Forbes M.D. on 02/22/2024 at 14:42 Approved by: Mariza Forbes M.D. on 02/22/2024 at 14:51
[2024-02-22] MEDS: SODIUM CHLORIDE 0.9% 1,000 ML 1000 ML IV (13:46)
[2024-02-22 13:48] LABS: Add Manual Diff / Slide Review NO; Basophils Absolute Auto 0 /uL (0-100); Basophils Percent Auto 0.2 % (0-2); Eosinophils Absolute Auto 0 /uL (0-450); Eosinophils Percent Auto 0.4 % (2-4); Hematocrit 41.6 % (36-46); Hemoglobin 14.5 g/dL (12.0-16.0); Lymphocytes Absolute Auto 1200 /uL (1100-4500); Mean Corpuscular HGB Conc 34.8 % (30-36); Mean Corpuscular Hemoglobin 31.4 PG (26-34); Mean Corpuscular Volume 90.3 fL (80-100); Monocytes Absolute Auto 900 /uL (0-900); Monocytes Percent Auto 9.4 % (3-14); Neutrophils Absolute Auto 7700 /uL (1500-7000); Platelet Count 279 X10^3/uL (150-400); Red Blood Cell Count 4.61 X10^6/uL (4.0-5.2); Red Cell Distribution Width 13.2 % (11.6-14.8); White Blood Cell Count 9.9 X10^3/uL (4.5-11.0)
[2024-02-22] MEDS: diphenhydrAMINE 50 MG/ML VIAL 25 MG IV (13:48)
[2024-02-22] MEDS: HALOPERIDOL 5 MG/ML VIAL 2 MG IV (13:49)
[2024-02-22 14:01] LABS: Alanine Aminotransferase 45 IU/L (<35); Albumin 4.3 g/dL (3.5-5.0); Albumin Globulin Ratio 1.4 (1.0-2.8); Alkaline Phosphatase 52 U/L (38-126); Aspartate Aminotransferase 86 IU/L (14-36); BUN Creatinine Ratio 14.6 (6-22); Bilirubin Total 1.7 mg/dL (0.2-1.3); Blood Urea Nitrogen 14 mg/dL (7-17); Calcium 9.1 mg/dL (8.4-10.2); Carbon Dioxide 24 mmol/L (22-32); Chloride 101 mmol/L (98-107); Estimated Glomerular Filt Rate > 60 mL/min (>60); Globulin 3.1 g/dL (1.7-4.1); Glucose 103 mg/dL (70-100); HEMOLYSIS 23 (0-50); Lipase 86 U/L (23-300); Potassium 3.2 mmol/L (3.4-5.1); Sodium 135 mmol/L (137-145); Total Protein 7.4 g/dL (6.3-8.2)
[2024-02-22 14:02] LABS: Lactate (Lactic Acid) 0.8 mmol/L (0.7-2.1)
== END 2024-02-22 16:36 | disposition home or self-care (01) ==
PROVIDERS: Emergency Provider Emergency Medicine; Family Provider Internal Medicine; PCP Internal Medicine
DX: F12.188 Cannabis abuse with other cannabis-induced disorder (principal); R10.9 Unspecified abdominal pain; R11.11 Vomiting without nausea
CPT/HCPCS: 36415; 74177; 80053; 83605; 83690; 83735; 85025; 96361; 96374; 96375; 99284; J1200; J1630; Q9967

== ENCOUNTER 2024-03-23 12:55 | Emergency (ER) | payer OTHER, SELFPAY ==
[2024-03-23] VITALS (9 sets, daily range): BP systolic 112–158; BP diastolic 62–108; PULSE 84–124; RESP 12–33; TEMP 36.6; O2SAT 94–100; BMI 39.6
--- NOTE | 2024-03-23 13:02 | EKG_ITS ---
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
--- NOTE | 2024-03-23 13:13 | ED.NAVMDI ---
HPI - Nausea/Vomiting/Diarrhea General Chief complaint: Nausea/Vomiting/Diarrhea Stated complaint: cyclic vomiting Time Seen by Provider: 03/23/24 13:04 History of Present Illness HPI Narrative: 23-year-old female arrived by EMS with history of reported cyclic vomiting syndrome, last treated in the emergency department about 1 month ago, reports she had multiple episodes over number of days in multiple facilities, can not recall any specific treatments that seemed to be better than others, she has been having loose stools since last night, that she believes set off her cyclic vomiting, multiple episodes of nonbloody emesis since last night and overnight, she is tried oral dissolvable Zofran that is not helping, abdominal cramping, loose stools, ongoing vomiting and retching. Arrival by EMS, patient was not given any specific treatment during transport per her understanding. Related Data Home Medications Medication Instructions Recorded Confirmed bupropion HCl 75 mg tablet 2 tab PO BID ##0 07/10/17 12/11/18 trazodone 50 mg tablet PO HS ##0 07/10/17 ondansetron 4 mg disintegrating 4 mg sublingual Q6HP PRN Vomiting 12/11/18 12/11/18 tablet (Zofran ODT) Previous Rx's Medication Instructions Recorded ondansetron 4 mg disintegrating 4 mg PO Q6-8H PRN nausea and 12/11/18 tablet vomiting #10 tabs metoclopramide HCl 10 mg tablet 10 mg PO Q6H PRN nausea and 12/18/18 vomiting #20 tabs multivit no.42-iron 38 1 cap PO DAILY #30 caps 01/27/19 mg-methyltetrahydfolate 1 mg-dha 225 mg capsule ondansetron 4 mg disintegrating 4 mg PO Q8H Nausea vomiting #14 02/11/19 tablet tabs ondansetron 4 mg disintegrating 4 mg PO TID-QID PRN nausea and 06/12/21 tablet vomiting #10 tabs promethazine 25 mg rectal 25 mg [place] Q4-6H PRN nausea and 06/12/21 suppository vomiting #12 ea haloperidol 2 mg tablet 2 mg PO TID PRN nausea #30 tabs 02/22/24 Allergies Allergy/AdvReac Type Severity Reaction Status Date / Time No Known Allergies Allergy Verified 02/22/24 13:00 Patient History Medical History (Updated 03/23/24 @ 15:36 by Andreas Rojas MD) Cannabis hyperemesis syndrome concurrent with and due to cannabis abuse Social History Smoking Status: Current every day smoker alcohol intake: current substance use type: marijuana Smoking Status: Current every day smoker tobacco type: cigarettes and vaping alcohol intake frequency: 0-2 drinks per day Alcohol type: hard liquor Exam Narrative Exam Narrative: GENERAL: Well-developed patient, in mild distress. HEAD: Atraumatic. Normocephalic. EYES: Pupils equal round and reactive. Extraocular motions intact. No scleral icterus. No injection or drainage. ENT: Nose without bleeding, purulent drainage. Throat without erythema, tonsillar hypertrophy or exudate. Airway patent. NECK: Trachea midline. Non tender CARDIOVASCULAR: Regular rate and rhythm without murmurs, gallops, or rubs. RESPIRATORY: Clear to auscultation. Breath sounds equal bilaterally. No wheezes, rales, or rhonchi. GASTROINTESTINAL: Abdomen soft, non-tender, nondistended. EXTREMITIES: No edema or joint tenderness. BACK: Nontender without deformity or crepitance. No flank tenderness. NEURO: AOx3. Motor functions grossly nonfocal SKIN: No rash or erythema of visible areas Initial Vital Signs Initial Vital Signs: Vital Signs Temperature 97.8 F 03/23/24 13:00 Pulse Rate 124 H 03/23/24 13:00 Respiratory Rate 16 03/23/24 13:00 Blood Pressure 144/93 H 03/23/24 13:00 Pulse Oximetry 100 03/23/24 13:00 Oxygen Delivery Method Room Air 03/23/24 13:00 Course Orders Ordered: ED Orders 03/23/24 13:03 EKG-12 Lead Stat 03/23/24 13:14 Complete Blood Count AUTO DIFF Stat Comprehensive Metabolic Panel Stat HCG Quantitative /Beta subunit Stat Lipase Stat Discontinued Medications Diphenhydramine HCl (Diphenhydramine 50 Mg/Ml Vial) 50 mg IV NOW ONE Stop: 03/23/24 13:23 Last Admin: 03/23/24 13:31 Dose: 50 mg Documented By: BS Droperidol (Droperidol 5 Mg/2 Ml Vial) 2.5 mg IV NOW ONE Stop: 03/23/24 13:23 Last Admin: 03/23/24 13:51 Dose: Not Given Documented By: ROMAINE Haloperidol (Haloperidol 5 Mg/Ml Vial) 5 mg IV NOW ONE Stop: 03/23/24 13:27 Last Admin: 03/23/24 13:31 Dose: 5 mg Documented By: ROMAINE Sodium Chloride (Normal Saline 0.9%) 1,000 mls @ 1,000 mls/hr IV BOLUS ONE Stop: 03/23/24 14:25 Last Infusion: 03/23/24 14:49 Dose: Infused Documented By: Admin: 03/23/24 13:31 Dose: 1,000 mls/hr Documented By: ROMAINE Ondansetron HCl (Ondansetron 4 Mg/2 Ml Inj) 4 mg IV NOW PRN PRN Reason: Nausea And Vomiting Ondansetron HCl (Ondansetron 4 Mg Odt) 4 mg PO NOW PRN PRN Reason: Nausea And Vomiting Vital Signs Vital signs: Vital Signs - 8 hr 03/23/24 13:00 03/23/24 13:00 03/23/24 13:30 Temperature 97.8 F Pulse Rate 124 H 124 H 101 H Respiratory Rate 16 32 H Blood Pressure 144/93 H Pulse Oximetry 100 95 96 Oxygen Delivery Method Room Air 03/23/24 13:38 03/23/24 13:38 03/23/24 14:00 Temperature Pulse Rate 112 H 85 Respiratory Rate 32 H 12 Blood Pressure 150/108 H Pulse Oximetry 96 94 Oxygen Delivery Method Room Air 03/23/24 14:01 03/23/24 14:01 03/23/24 14:30 Temperature Pulse Rate 84 Respiratory Rate 12 Blood Pressure 112/62 120/71 Pulse Oximetry 94 Oxygen Delivery Method 03/23/24 14:30 03/23/24 15:00 03/23/24 15:17 Temperature Pulse Rate 97 H 102 H 108 H Respiratory Rate 13 33 H Blood Pressure Pulse Oximetry 95 98 Oxygen Delivery Method 03/23/24 15:23 Temperature Pulse Rate Respiratory Rate Blood Pressure 158/108 H Pulse Oximetry Oxygen Delivery Method MDM - Nausea/Vomiting/Diarrhea Lab Data Attestation: I reviewed the patient's lab results. Lab results narrative: WBC 15k, 03/23/24 13:14 03/23/24 13:14 Labs: Lab Results 03/23/24 Range/Units 13:14 WBC 15.8 H (4.5-11.0) X10^3/uL RBC 5.04 (4.0-5.2) X10^6/uL Hgb 15.5 (12.0-16.0) g/dL Hct 45.5 (36-46) % MCV 90.3 (80-100) fL MCH 30.6 (26-34) PG MCHC 33.9 (30-36) % RDW 13.5 (11.6-14.8) % Plt Count 288 (150-400) X10^3/uL Neut % (Auto) 94.7 H (50-75) % Lymph % (Auto) 2.3 L (25-40) % Parmer % (Auto) 2.3 L (3-14) % Eos % (Auto) 0.1 L (2-4) % Baso % (Auto) 0.6 (0-2) % Neut # (Auto) 00741 H (8740-6279) /uL Lymph # (Auto) 400 L (5966-5073) /uL Parmer # (Auto) 400 (0-900) /uL Eos # (Auto) 0 (0-450) /uL Baso # (Auto) 100 (0-100) /uL Sodium 136 L (137-145) mmol/L Potassium 4.0 (3.4-5.1) mmol/L Chloride 103 (98-107) mmol/L Carbon Dioxide 17 L (22-32) mmol/L BUN 11 (7-17) mg/dL Creatinine 0.74 (0.52-1.04) mg/dL Estimated GFR > 60 (>60) mL/min BUN/Creatinine Ratio 14.9 (6-22) Glucose 177 H (70-100) mg/dL Calcium 9.9 (8.4-10.2) mg/dL Total Bilirubin 1.7 H (0.2-1.3) mg/dL AST 33 (14-36) IU/L ALT 30 (<35) IU/L Alkaline Phosphatase 76 (38-126) U/L Total Protein 8.4 H (6.3-8.2) g/dL Albumin 4.9 (3.5-5.0) g/dL Globulin 3.5 (1.7-4.1) g/dL Albumin/Globulin Ratio 1.4 (1.0-2.8) Lipase 39 (23-300) U/L HCG, Quant < 2.39 mIU/mL ECG Data Attestation: I personally reviewed and interpreted this ECG as follows: Interpretation: 1302, normal sinus rhythm with rate 97, no obvious ST segment elevation or depression changes. Some movement artifact noted. [place] 160, QRS 74. QTC 462 not prolonged. MDM Narrative Medical decision making narrative: 23-year-old female with history of cyclic vomiting, diarrheal illness last night, believes it set off her cyclic vomiting typical symptoms, numerous episodes nonbloody emesis since that time. Arrived by EMS, no treatment during transport. She had been taking Zofran overnight without relief of her vomiting. No black or red stools. Afebrile, sirs screen negative on triage vitals. Abdominal exam unremarkable, frequent retching noted. Moves neck well, head face atraumatic. Screening EKG, normal intervals, normal QTC noted. IV Zofran started from discharge. We will add IV haloperidol. Could consider Reglan but she has been having recent diarrhea, we will hold for now. Add stool studies if she produces a specimen. IV fluid bolus. Patient felt better, abruptly announced she wanted to go home, called for a ride, left ED before any discharge instructions could be relayed, against medical advice per nursing Discharge Plan Departure Patient Disposition: Left Against Medical Advice Clinical Impression: Left against medical advice, Cyclical vomiting Activity Restrictions/Additional Instructions: Patient left without discharge instructions, had responded to Haldol medication for her cyclic vomiting, no stool specimen was obtained, patient was discharged against medical advice prior to my being able to speak with her about her discharge, but apparently significantly improved and wanted to go home, apparently went home with friend/family Prescriptions: No Action bupropion HCl 75 MG tablet 2 tab PO BID Qty: 0 trazodone 50 MG tablet PO HS Qty: 0 ondansetron 4 mg tablet,disintegrating 4 mg PO Q8H Qty: 14 0RF ondansetron 4 mg tablet,disintegrating 4 mg PO TID-QID PRN (Reason: nausea and vomiting) Qty: 10 0RF promethazine 25 mg suppository 25 mg [place] Q4-6H PRN (Reason: nausea and vomiting) Qty: 12 0RF ondansetron [Zofran ODT] 4 MG tablet,disintegrating 4 mg Sublingual Q6HP PRN (Reason: Vomiting) ondansetron 4 mg tablet,disintegrating 4 mg PO Q6-8H PRN (Reason: nausea and vomiting) Qty: 10 0RF metoclopramide HCl 10 mg tablet 10 mg PO Q6H PRN (Reason: nausea and vomiting) Qty: 20 0RF multivit no.95-vslh-synlvz-dha 38-1-225 mg capsule 1 cap PO DAILY Qty: 30 0RF haloperidol 2 mg tablet 2 mg PO TID PRN (Reason: nausea) Qty: 30 0RF Referrals: Davi Thompson MD [Primary Care Provider] - Stand Alone Forms: Patient Portal/API, Against Medical Advice
[2024-03-23 13:21] LABS: Add Manual Diff / Slide Review NO; Basophils Absolute Auto 100 /uL (0-100); Basophils Percent Auto 0.6 % (0-2); Eosinophils Absolute Auto 0 /uL (0-450); Eosinophils Percent Auto 0.1 % (2-4); Hematocrit 45.5 % (36-46); Hemoglobin 15.5 g/dL (12.0-16.0); Lymphocytes Absolute Auto 400 /uL (1100-4500); Lymphocytes Percent Auto 2.3 % (25-40); Mean Corpuscular HGB Conc 33.9 % (30-36); Mean Corpuscular Hemoglobin 30.6 PG (26-34); Mean Corpuscular Volume 90.3 fL (80-100); Monocytes Absolute Auto 400 /uL (0-900); Monocytes Percent Auto 2.3 % (3-14); Neutrophils Absolute Auto 15000 /uL (1500-7000); Neutrophils Percent Auto 94.7 % (50-75); Platelet Count 288 X10^3/uL (150-400); Red Blood Cell Count 5.04 X10^6/uL (4.0-5.2); Red Cell Distribution Width 13.5 % (11.6-14.8); White Blood Cell Count 15.8 X10^3/uL (4.5-11.0)
[2024-03-23] MEDS: diphenhydrAMINE 50 MG/ML VIAL IV (13:31)
[2024-03-23] MEDS: HALOPERIDOL 5 MG/ML VIAL IV (13:31)
[2024-03-23] MEDS: SODIUM CHLORIDE 0.9% 1,000 ML 1000 ML IV (13:31)
[2024-03-23 13:41] LABS: Alanine Aminotransferase 30 IU/L (<35); Albumin 4.9 g/dL (3.5-5.0); Albumin Globulin Ratio 1.4 (1.0-2.8); Alkaline Phosphatase 76 U/L (38-126); Aspartate Aminotransferase 33 IU/L (14-36); BUN Creatinine Ratio 14.9 (6-22); Bilirubin Total 1.7 mg/dL (0.2-1.3); Blood Urea Nitrogen 11 mg/dL (7-17); Calcium 9.9 mg/dL (8.4-10.2); Carbon Dioxide 17 mmol/L (22-32); Chloride 103 mmol/L (98-107); Estimated Glomerular Filt Rate > 60 mL/min (>60); Globulin 3.5 g/dL (1.7-4.1); Glucose 177 mg/dL (70-100); HEMOLYSIS 29 (0-50); Lipase 39 U/L (23-300); Sodium 136 mmol/L (137-145); Total Protein 8.4 g/dL (6.3-8.2)
[2024-03-23 13:58] LABS: HCG Quantitative /Beta subunit < 2.39 mIU/mL
--- NOTE | 2024-03-23 15:28 | PC.NURSE ---
Pt left against medical advice. Advised pt that the MD is aware that she wants to go home, pt states i dont care i want to go home now and take a shower paperwork signed and in paper chart. pt ambulated out of ED with steady gait.
== END 2024-03-23 15:34 | disposition left against medical advice (07) ==
PROVIDERS: Emergency Provider Emergency Medicine; Family Provider Internal Medicine; PCP Internal Medicine
DX: R11.15 Cyclical vomiting syndrome unrelated to migraine (principal); Z53.29 Procedure and treatment not carried out because of patient's decision for other reasons; R19.7 Diarrhea, unspecified; R10.9 Unspecified abdominal pain
CPT/HCPCS: 36415; 80053; 83690; 84702; 85025; 93005; 96361; 96374; 96375; 99284; J1200; J1630

== ENCOUNTER 2024-07-19 01:22 | Observation (INO) | payer OTHER, SELFPAY ==
[2024-07-19 01:30] VITALS: BP 144/100; PULSE 97; O2SAT 97
[2024-07-19 01:32] VITALS: BP 144/100; PULSE 107; RESP 16; TEMP 37; O2SAT 98
--- NOTE | 2024-07-19 01:34 | ED.GENADULT ---
HPI - General Adult General Chief complaint: Nausea/Vomiting/Diarrhea Stated complaint: 12 weeks preg/vomiting all day Time Seen by Provider: 07/19/24 01:32 History of Present Illness HPI narrative: 24-year-old currently 12 weeks presents with severe vomiting since 6:00 a.m., unable to sleep. She is restless, continuing to have dry heaves. She has had similar episodes before multiple times since the age of 15. Previously has been told that is cannabinoid hyperemesis syndrome however she does not believe this because she believes the vomiting episode started prior to beginning to smoke marijuana. Also notes that her mom has similar findings. Hot shower makes it worse. She does continue to use marijuana regularly. No vaginal discharge or bleeding. No fevers. Related Data Home Medications Medication Instructions Recorded Confirmed bupropion HCl 75 mg tablet 2 tab PO BID ##0 07/10/17 12/11/18 trazodone 50 mg tablet PO HS ##0 07/10/17 ondansetron 4 mg disintegrating 4 mg sublingual Q6HP PRN Vomiting 12/11/18 12/11/18 tablet (Zofran ODT) Previous Rx's Medication Instructions Recorded ondansetron 4 mg disintegrating 4 mg PO Q6-8H PRN nausea and 12/11/18 tablet vomiting #10 tabs metoclopramide HCl 10 mg tablet 10 mg PO Q6H PRN nausea and 12/18/18 vomiting #20 tabs multivit no.42-iron 38 1 cap PO DAILY #30 caps 01/27/19 mg-methyltetrahydfolate 1 mg-dha 225 mg capsule ondansetron 4 mg disintegrating 4 mg PO Q8H Nausea vomiting #14 02/11/19 tablet tabs ondansetron 4 mg disintegrating 4 mg PO TID-QID PRN nausea and 06/12/21 tablet vomiting #10 tabs promethazine 25 mg rectal 25 mg GA Q4-6H PRN nausea and 06/12/21 suppository vomiting #12 ea haloperidol 2 mg tablet 2 mg PO TID PRN nausea #30 tabs 02/22/24 Allergies Allergy/AdvReac Type Severity Reaction Status Date / Time No Known Allergies Allergy Verified 02/22/24 13:00 Review of Systems Review of Systems Narrative: Pertinent positive and negative findings as per HPI Patient History Medical History (Updated 07/19/24 @ 03:22 by Ayesha Panchal MD) Cannabis hyperemesis syndrome concurrent with and due to cannabis abuse Social History alcohol intake: current substance use type: marijuana tobacco type: cigarettes and vaping alcohol intake frequency: 0-2 drinks per day Alcohol type: hard liquor Exam Initial Vital Signs Initial Vital Signs: General: Alert, dry heaves, clearly not feeling well Respiratory: Able to speak in full sentences, no obvious respiratory distress Cardiac: Tachycardic but regular Abdomen: Soft, nontender nondistended no flank pain Skin: Pale, no rashes Neurologic: Grossly intact no obvious asymmetries or abnormalities Psych: appropriate insight and affect, cooperative Medical Decision Making MDM Narrative Medical decision making narrative: CC: Persistent vomiting since 6:00 a.m. Complicating co-morbidities: Currently 12 weeks , history of cyclic vomiting, prior concerns for cannabinoid hyperemesis syndrome, Data collected from: patient Medical records reviewed: Prior visits in the ER on March 26, February 24, October 2021, June of 2021, June of 2019, February of 2019 all for cyclic vomiting NANETTE phone shows she was seen at [facility] on the and on the which means that she checked in after midnight and left without being seen and checked here by 1:00 a.m.. She states she left without being seen on the as well. She says ?it took too long for them to get me? Differential considered: Hyperemesis gravidarum, cannabinoid hyperemesis syndrome, cyclic vomiting syndrome bowel obstruction Exam documented above, pertinent findings include: Patient is having dry heaves, unable to sit still due to her nausea, slightly tachycardic, abdomen is benign Bedside ultrasound shows intrauterine fetus with heart rate in the 150 range Lab Test results independently reviewed as above. Pertinent findings: CBC is mild leukocytosis at 13.6 with 93% neutrophils, this is similar to almost all of her previous CBCs. No anemia Chemistries show appropriate renal function, calcium slightly elevated at 10.5. Glucose is significantly elevated at 160 Urine shows ketones, nitrites, leukocyte esterase bacteria but also multiple squamous cells. Do not suspect infection. We will await culture Urine tox shows only marijuana Treatments: 2 L of fluid, Benadryl, Compazine. Re-evaluations: Continues to pace about the room, unpleasant interactions with staff. States she can not pee unless she has and a hot shower. Continues to request being in a hot shower. She is significantly agitated and can not keep her legs still while in bed. Continues to ask when she can go up stairs, fully expecting admission Discussion: 24-year-old woman 12 weeks , cyclic vomiting multiple prior episodes very likely related to hyperemesis cannabinoid syndrome maybe exacerbated by her . She is unable to stand still, the only thing that brings her relief is being in the shower, she is significantly agitated and minimally cooperative. She states she has established care with a midline clinic in [place]. Discussed findings with Dr. Rogers. She is willing to admit the patient for treatment of her hyperemesis whether it be due to cannabinoids or gravidarum. Bridging orders will be written Discharge Plan Departure Patient Disposition: Admitted as Observation Clinical Impression: Cyclic vomiting syndrome, 12 weeks gestation of , Cannabinoid hyperemesis syndrome, Acute hyperglycemia, Elevated blood pressure affecting in first trimester, antepartum Admit Date/Time: 07/19/24 03:20 Admit Provider: Judy Rogers
[2024-07-19] MEDS: PROCHLORPERAZINE 10 MG/2 ML VIAL IV ×2 (01:55→04:46)
[2024-07-19] MEDS: diphenhydrAMINE 50 MG/ML VIAL IV (01:55)
[2024-07-19] MEDS: SODIUM CHLORIDE 0.9% 1,000 ML 1000 ML IV ×2 (01:57)
[2024-07-19 01:59] LABS: Add Manual Diff / Slide Review NO; Basophils Absolute Auto 0 /uL (0-100); Basophils Percent Auto 0.3 % (0-2); Eosinophils Absolute Auto 0 /uL (0-450); Hematocrit 38.7 % (36-46); Hemoglobin 13.7 g/dL (12.0-16.0); Lymphocytes Absolute Auto 500 /uL (1100-4500); Lymphocytes Percent Auto 3.7 % (25-40); Mean Corpuscular HGB Conc 35.4 % (30-36); Mean Corpuscular Hemoglobin 29.7 PG (26-34); Mean Corpuscular Volume 83.9 fL (80-100); Monocytes Absolute Auto 400 /uL (0-900); Monocytes Percent Auto 2.7 % (3-14); Neutrophils Absolute Auto 12700 /uL (1500-7000); Neutrophils Percent Auto 93.3 % (50-75); Platelet Count 282 X10^3/uL (150-400); Red Blood Cell Count 4.61 X10^6/uL (4.0-5.2); White Blood Cell Count 13.6 X10^3/uL (4.5-11.0)
[2024-07-19 02:00] VITALS: BP 156/84; PULSE 87; O2SAT 100
[2024-07-19 02:55] LABS: Appearance Urine UA TURBID; Bilirubin Urine UA 1+ (NEGATIVE); Color Urine UA YELLOW; Glucose Urine UA TRACE g/dL (Negative); Ketones Urine UA 3+ (NEGATIVE); Leukocyte Esterase Urine UA TRACE (NEGATIVE); Nitrite Urine UA POSITIVE (Negative); Occult Blood Urine UA NEGATIVE (Negative); Protein Urine UA 2+ (Negative); Specific Gravity Urine UA >=1.030 (1.000-1.035); Urobilinogen Urine UA 0.2 E.U./dL (0.2)
[2024-07-19 02:57] LABS: Alanine Aminotransferase 26 IU/L (<35); Albumin 4.9 g/dL (3.5-5.0); Albumin Globulin Ratio 1.3 (1.0-2.8); Alkaline Phosphatase 61 U/L (38-126); Aspartate Aminotransferase 28 IU/L (14-36); BUN Creatinine Ratio 13.7 (6-22); Bilirubin Total 0.9 mg/dL (0.2-1.3); Blood Urea Nitrogen 10 mg/dL (7-17); Calcium 10.5 mg/dL (8.4-10.2); Carbon Dioxide 16 mmol/L (22-32); Chloride 105 mmol/L (98-107); Estimated Glomerular Filt Rate > 60 mL/min (>60); Globulin 3.9 g/dL (1.7-4.1); Glucose 160 mg/dL (70-100); HEMOLYSIS < 15 (0-50); Potassium 3.6 mmol/L (3.4-5.1); Sodium 138 mmol/L (137-145); Total Protein 8.8 g/dL (6.3-8.2)
[2024-07-19 02:58] LABS: Ur Creatinine Normal (Normal); Ur Specific Gravity Normal (Normal); Urine Amphetamines Negative (Negative); Urine Barbiturates Negative (Negative); Urine Benzodiazepines Negative (Negative); Urine Cocaine Negative (Negative); Urine MDMA Negative (Negative); Urine Methadone Negative (Negative); Urine Methamphetamines Negative (Negative); Urine Opiates Negative (Negative); Urine Oxycodone Negative (Negative); Urine Phencyclidine Negative (Negative); Urine THC Positive (Negative); Urine Tricyclic Antidepressant Negative (Negative); Urine pH Normal (Normal)
[2024-07-19 03:00] LABS: pH Urine UA 5.5 (4.5-8.0)
[2024-07-19 03:11] LABS: Amorphous Sediment Urine 4+; Bacteria Urine Many (>30); Culture Indicated Urine Specimen Cultured; Ictotest Urine Negative (Negative); RBC Urine 0-1/HPF (0-5/HPF); Squamous Epithelial Cell Urine 5-10 /HPF (0-5/HPF); Urine Volume 10mL (spun); WBC Urine 1-5/HPF (0-5/HPF)
[2024-07-19] MEDS: ONDANSETRON 8 MG in SODIUM CHLORIDE 0.9% 50 ML 216 MG IV (03:18)
[2024-07-19 04:19] VITALS: BMI 39.9
[2024-07-19] MEDS: SODIUM CHLORIDE 0.9% 1,000 ML 150 ML IV (04:42)
[2024-07-19 04:46] VITALS: BP 127/72; PULSE 92
--- NOTE | 2024-07-19 06:15 | PC.NURSE ---
Addendum entered by Irma Hernandez R.N. 07/19/24 06:25: Jarad notified. Addendum entered by Irma Hernandez R.N. 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 RN briefly tried to educate patient on importance of waiting for provider to assess but Patient got more agitated. RN tried to delay patient until RN could contact provider but patient began trying to walk out into hallway. RN was able to have patient sign AMA paper and allow RN to remove IV and wrist ID band. RN then got wheelchair and helped patient out to ER exit where friend picked her up.
--- NOTE | 2024-07-19 07:17 | P.DS_ITS ---
History of Present Illness History of Present Illness Chief complaint: 12 weeks preg/vomiting all day Narrative: 24 yo presenting at approximately 12wks EGA for continual vomiting since earlier this AM. She has struggled with nasuea/vomiting since long before . She does have frequent marijuana use. Sx improve when in the hot shower. Discharge Providers Provider Date of admission: 07/19/24 03:20 Discharge Date: 07/19/24 Primary care physician: Davi Thompson MD Discharge provider: Judy Rogers MD Exam Vital Signs (past 8 hours): - 07/19/24 01:30 07/19/24 01:30 07/19/24 01:30 Temperature Pulse Rate 97 H 97 H Respiratory Rate Blood Pressure 144/100 H Pulse Oximetry 97 97 Oxygen Delivery Method 07/19/24 01:32 07/19/24 02:00 07/19/24 02:00 Temperature 98.6 F Pulse Rate 107 H 87 Respiratory Rate 16 Blood Pressure 144/100 H 156/84 H Pulse Oximetry 98 100 Oxygen Delivery Method Room Air Room Air 07/19/24 04:46 Temperature Pulse Rate 92 H Respiratory Rate Blood Pressure 127/72 Pulse Oximetry Oxygen Delivery Method Oxygen Delivery Method Room Air Narrative Exam Narrative: Pt left AMA prior to being seen Objective Labs 07/19/24 01:49 07/19/24 01:49 Labs: Laboratory Results - last 24 hr 07/19/24 07/19/24 07/19/24 01:49 02:40 02:40 WBC 13.6 H RBC 4.61 Hgb 13.7 Hct 38.7 MCV 83.9 MCH 29.7 MCHC 35.4 RDW 13.0 Plt Count 282 Neut % (Auto) 93.3 H Lymph % (Auto) 3.7 L [place] % (Auto) 2.7 L Eos % (Auto) 0.0 L Baso % (Auto) 0.3 Neut # (Auto) 30939 H Lymph # (Auto) 500 L [place] # (Auto) 400 Eos # (Auto) 0 Baso # (Auto) 0 Sodium 138 Potassium 3.6 Chloride 105 Carbon Dioxide 16 L BUN 10 Creatinine 0.73 Estimated GFR > 60 BUN/Creatinine Ratio 13.7 Glucose 160 H Calcium 10.5 H Total Bilirubin 0.9 AST 28 ALT 26 Alkaline Phosphatase 61 Total Protein 8.8 H Albumin 4.9 Globulin 3.9 Albumin/Globulin Ratio 1.3 Urine Color Yellow Urine Appearance Turbid Urine pH 5.5 Normal Ur Specific [place] >=1.030 H Urine Protein 2+ H Urine Glucose (UA) Trace H Urine Ketones 3+ H Urine Occult Blood Negative Urine Nitrate Positive H Urine Bilirubin 1+ H Ur Bilirubin Confirm Negative Urine Urobilinogen 0.2 Ur Leukocyte Esterase Trace H Urine RBC 0-1/hpf Urine WBC 1-5/hpf Ur Squamous Epith Cells 5-10 /hpf H Amorphous Sediment 4+ Urine Bacteria Many (>30) H Ur Culture Indicated? Specimen cultured Vol Urine Centrifuged 10ml (spun) U Opiates 300ng/mL cut Negative Ur Oxycodone Screen Negative Urine Methadone Screen Negative Ur Barbiturates Screen Negative U Tricyclic Antidepress Negative Ur Phencyclidine Scrn Negative Ur Amphetamines Screen Negative U Methamphetamines Scrn Negative Ur MDMA Scrn (Ecstasy) Negative U Benzodiazepines Scrn Negative Urine Cocaine Screen Negative U Marijuana (THC) Screen Positive H Urine Specific [place] Normal Ur Creatinine Normal [facility] Medical History (Updated 07/19/24 @ 03:22 by Ayesha Panchal MD) Cannabis hyperemesis syndrome concurrent with and due to cannabis abuse Social History household members: spouse and children alcohol intake: current substance use type: marijuana Discharge Assessment & Plan Assessment and Plan Assessment: 24 yo presenting at approximately 12wks EGA for severe nausea and vomiting for which she was seen multiple times at [facility] where she left prior to tx. Some concern for cannabinoid hyperemesis wiht possible component of hyperemesis gravidarum. labs suggestive of dehydration but glucose also elevated. She was admitted for IVF and antiemetic control but prior to pt being see she left AMA AMA paperwork signed by nurse and pt left before I was able to see her Discharge Plan Discharge Plan Patient Disposition: Home Discharge orders & Medications Prescriptions: Continued bupropion HCl 75 MG tablet 2 tab PO BID Qty: 0 trazodone 50 MG tablet PO HS Qty: 0 ondansetron 4 mg tablet,disintegrating 4 mg PO Q8H Qty: 14 0RF ondansetron 4 mg tablet,disintegrating 4 mg PO TID-QID PRN (Reason: nausea and vomiting) Qty: 10 0RF promethazine 25 mg suppository 25 mg [place] Q4-6H PRN (Reason: nausea and vomiting) Qty: 12 0RF ondansetron [Zofran ODT] 4 MG tablet,disintegrating 4 mg Sublingual Q6HP PRN (Reason: Vomiting) ondansetron 4 mg tablet,disintegrating 4 mg PO Q6-8H PRN (Reason: nausea and vomiting) Qty: 10 0RF metoclopramide HCl 10 mg tablet 10 mg PO Q6H PRN (Reason: nausea and vomiting) Qty: 20 0RF multivit no.[id number] 38-1-225 mg capsule 1 cap PO DAILY Qty: 30 0RF haloperidol 2 mg tablet 2 mg PO TID PRN (Reason: nausea) Qty: 30 0RF Follow up/Referrals: Davi Thompson MD [Primary Care Provider] - Visit Report/Discharge Packet Stand Alone Forms: Patient Portal/API, Stroke Signs & Symptoms Discharge Data Primary Care Provider: Davi Thompson Attending Provider: Judy Rogers Admit Date/Time: 07/19/24 03:20 PROFEE Charge Codes Discharge inpatient/observation: [id number] (No charge, pt not seen, note written for documentation but no other charge option available )
== END 2024-07-19 06:18 | disposition left against medical advice (07) ==
LOC: ED 02:44 → AC 03:21
PROVIDERS: Admitting Provider Family Medicine; Emergency Provider Emergency Medicine; Family Provider Internal Medicine; PCP Internal Medicine; Visit Provider Family Medicine
CPT/HCPCS: 36415; 80053; 80305; 81001; 81003; 85025; 87086; 99284; G0378; J0780; J1200; J2405

== ENCOUNTER 2024-07-19 13:17 | Observation (INO) | payer OTHER, SELFPAY ==
[2024-07-19 04:19] VITALS: BMI 39.9
[2024-07-19 13:21] VITALS: BP 122/74; PULSE 84; RESP 20; TEMP 37.3; O2SAT 98; BMI 44.1
[2024-07-19 13:55] LABS: Add Manual Diff / Slide Review NO; Basophils Absolute Auto 0 /uL (0-100); Basophils Percent Auto 0.3 % (0-2); Eosinophils Absolute Auto 0 /uL (0-450); Hematocrit 34.8 % (36-46); Hemoglobin 12.4 g/dL (12.0-16.0); Lymphocytes Absolute Auto 800 /uL (1100-4500); Lymphocytes Percent Auto 4.5 % (25-40); Mean Corpuscular HGB Conc 35.5 % (30-36); Mean Corpuscular Hemoglobin 30.2 PG (26-34); Monocytes Absolute Auto 1000 /uL (0-900); Neutrophils Absolute Auto 15700 /uL (1500-7000); Neutrophils Percent Auto 89.2 % (50-75); Platelet Count 277 X10^3/uL (150-400); White Blood Cell Count 17.6 X10^3/uL (4.5-11.0)
[2024-07-19 14:07] LABS: Alanine Aminotransferase 21 IU/L (<35); Albumin 4.6 g/dL (3.5-5.0); Albumin Globulin Ratio 1.5 (1.0-2.8); Alkaline Phosphatase 46 U/L (38-126); Aspartate Aminotransferase 26 IU/L (14-36); BUN Creatinine Ratio 12.5 (6-22); Bilirubin Total 1.1 mg/dL (0.2-1.3); Blood Urea Nitrogen 8 mg/dL (7-17); Calcium 9.9 mg/dL (8.4-10.2); Carbon Dioxide 17 mmol/L (22-32); Chloride 106 mmol/L (98-107); Estimated Glomerular Filt Rate > 60 mL/min (>60); Globulin 3.1 g/dL (1.7-4.1); Glucose 115 mg/dL (70-100); HEMOLYSIS < 15 (0-50); Potassium 3.7 mmol/L (3.4-5.1); Sodium 136 mmol/L (137-145); Total Protein 7.7 g/dL (6.3-8.2)
[2024-07-19 14:27] LABS: Bacteria Urine Many (>30); Culture Indicated Urine Specimen Cultured; Mucus Urine 1+ (Negative); RBC Urine None Seen (0-5/HPF); Squamous Epithelial Cell Urine 10-30 /HPF (0-5/HPF); Urine Volume 10mL (spun); WBC Urine 5-10/HPF (0-5/HPF)
[2024-07-19 14:28] LABS: Ictotest Urine Positive (Negative)
--- NOTE | 2024-07-19 14:50 | PC.NURSE ---
Pt pacing in room. Back and forth. MD in room. Pt states that she wants to leave and go home. MD explained benefits of staying. Pt ok to stay.
--- NOTE | 2024-07-19 14:56 | ED.NAVMDI ---
HPI - Nausea/Vomiting/Diarrhea General Chief complaint: Abdominal Pain Stated complaint: UTI Time Seen by Provider: 07/19/24 14:15 Source: patient and EMS Mode of arrival: EMS History of Present Illness HPI Narrative: Patient returns here after leaving against medical advice yesterday for hyperemesis. Patient is . Patient does not give a reason why she left yesterday. I did contact OBGYN and they will admit patient again. Denies any vaginal bleeding or discharge or fluid leak. Patient is 12 weeks . Patient does have history of marijuana use. Patient does have history of cyclic vomiting syndrome as well. Related Data Home Medications Medication Instructions Recorded Confirmed bupropion HCl 75 mg tablet 2 tab PO BID ##0 07/10/17 12/11/18 trazodone 50 mg tablet PO HS ##0 07/10/17 ondansetron 4 mg disintegrating 4 mg sublingual Q6HP PRN Vomiting 12/11/18 12/11/18 tablet (Zofran ODT) Previous Rx's Medication Instructions Recorded ondansetron 4 mg disintegrating 4 mg PO Q6-8H PRN nausea and 12/11/18 tablet vomiting #10 tabs metoclopramide HCl 10 mg tablet 10 mg PO Q6H PRN nausea and 12/18/18 vomiting #20 tabs multivit no.42-iron 38 1 cap PO DAILY #30 caps 01/27/19 mg-methyltetrahydfolate 1 mg-dha 225 mg capsule ondansetron 4 mg disintegrating 4 mg PO Q8H Nausea vomiting #14 02/11/19 tablet tabs ondansetron 4 mg disintegrating 4 mg PO TID-QID PRN nausea and 06/12/21 tablet vomiting #10 tabs promethazine 25 mg rectal 25 mg [place] Q4-6H PRN nausea and 06/12/21 suppository vomiting #12 ea haloperidol 2 mg tablet 2 mg PO TID PRN nausea #30 tabs 02/22/24 Allergies Allergy/AdvReac Type Severity Reaction Status Date / Time No Known Allergies Allergy Verified 02/22/24 13:00 Review of Systems Review of Systems Narrative: GENERAL: Negative chills, fatigue, malaise, fever, sweats. HEENT: Negative sinus pain, ear pain, sore throat RESPIRATORY: Negative dyspnea, cough CARDIOVASCULAR: Negative chest pain, palpitations GASTROINTESTINAL: Positive vomiting, nausea, negative abdominal pain : Negative dysuria, frequency, hematuria MUSCULOSKELETAL: Negative muscle or bony pain SKIN: Negative rash, skin lesions NEUROLOGIC: Negative weakness, numbness ROS Unobtainable: All systems reviewed & are unremarkable except as noted in HPI and below Patient History Medical History Cannabis hyperemesis syndrome concurrent with and due to cannabis abuse Social History household members: spouse and children Smoking Status: Current every day smoker alcohol intake: current substance use type: marijuana Smoking Status: Current every day smoker tobacco type: cigarettes and vaping alcohol intake frequency: 0-2 drinks per day Alcohol type: hard liquor Exam Narrative Exam Narrative: GENERAL: in no distress, not toxic not dyspneic HEAD: Normocephalic. EYES: Pupils equal round ENT: Mucous membranes moist. NECK: Trachea midline. CARDIOVASCULAR: Regular rate and rhythm RESPIRATORY: Clear to auscultation. Breath sounds equal bilaterally. No wheezes, rales, or rhonchi. GASTROINTESTINAL: Abdomen soft, non-tender no peritoneal sign EXTREMITIES: No gross deformities. BACK: No flank tenderness. NEURO: AOx4. Clear speech SKIN: Warm and dry PSYCH: Is very anxious, is cooperative Initial Vital Signs Initial Vital Signs: Vital Signs Temperature 99.1 F 07/19/24 13:21 Pulse Rate 84 07/19/24 13:21 Respiratory Rate 20 07/19/24 13:21 Blood Pressure 122/74 07/19/24 13:21 Pulse Oximetry 98 07/19/24 13:21 Oxygen Delivery Method Room Air 07/19/24 13:21 Course Orders Ordered: Discontinued Medications Diphenhydramine HCl (Diphenhydramine 50 Mg/Ml Vial) 50 mg IV NOW ONE Stop: 07/19/24 14:51 Last Admin: 07/19/24 14:57 Dose: 50 mg Documented By: Diphenhydramine HCl (Diphenhydramine 50 Mg/Ml Vial) 25 mg IV Q6HR PRN PRN Reason: Sleep Last Admin: 07/19/24 20:51 Dose: 25 mg Documented By: AUDREY Haloperidol (Haloperidol 5 Mg/Ml Vial) 5 mg IV NOW ONE Stop: 07/19/24 22:10 Last Admin: 07/19/24 22:16 Dose: 5 mg Documented By: HARSH Sodium Chloride (Normal Saline 0.9%) 1,000 mls @ 150 mls/hr IV CONT TOY Last Admin: 07/19/24 17:00 Dose: 150 mls/hr Documented By: ABELINO Metoclopramide HCl (Metoclopramide 10 Mg/2 Ml Inj) 10 mg IV Q6HR PRN PRN Reason: Nausea And Vomiting Last Admin: 07/19/24 20:20 Dose: 10 mg Documented By: AUDREY Ondansetron HCl (Ondansetron 4 Mg Odt) 4 mg SL Q4HR PRN PRN Reason: Nausea Last Admin: 07/19/24 21:44 Dose: 4 mg Documented By: Admin: 07/19/24 17:25 Dose: 4 mg Documented By: ABELINO Vit/Calcium/Iron/Folic Ac ( Vit,Calc/Iron/Folic 1 Tablet) 1 tab PO DAILY [facility] Prochlorperazine (Prochlorperazine 10 Mg/2 Ml Vial) 10 mg IV NOW ONE Stop: 07/19/24 14:51 Last Admin: 07/19/24 14:57 Dose: 10 mg Documented By: Thiamine HCl (Thiamine 100 Mg Tablet) 100 mg PO NOW ONE Stop: 07/19/24 17:00 Last Admin: 07/19/24 17:59 Dose: 100 mg Documented By: AEBLINO Vital Signs Vital signs: Vital Signs - 8 hr 07/19/24 13:21 Temperature 99.1 F Pulse Rate 84 Respiratory Rate 20 Blood Pressure 122/74 Pulse Oximetry 98 Oxygen Delivery Method Room Air MDM - Nausea/Vomiting/Diarrhea Lab Data 07/19/24 13:39 07/19/24 13:39 Labs: Lab Results 07/19/24 07/19/24 Range/Units 13:39 13:48 WBC 17.6 H (4.5-11.0) X10^3/uL RBC 4.10 (4.0-5.2) X10^6/uL Hgb 12.4 (12.0-16.0) g/dL Hct 34.8 L (36-46) % MCV 85.0 (80-100) fL MCH 30.2 (26-34) PG MCHC 35.5 (30-36) % RDW 13.0 (11.6-14.8) % Plt Count 277 (150-400) X10^3/uL Neut % (Auto) 89.2 H (50-75) % Lymph % (Auto) 4.5 L (25-40) % [place] % (Auto) 6.0 (3-14) % Eos % (Auto) 0.0 L (2-4) % Baso % (Auto) 0.3 (0-2) % Neut # (Auto) 39326 H (5932-5891) /uL Lymph # (Auto) 800 L (4411-5918) /uL [place] # (Auto) 1000 H (0-900) /uL Eos # (Auto) 0 (0-450) /uL Baso # (Auto) 0 (0-100) /uL Sodium 136 L (137-145) mmol/L Potassium 3.7 (3.4-5.1) mmol/L Chloride 106 (98-107) mmol/L Carbon Dioxide 17 L (22-32) mmol/L BUN 8 (7-17) mg/dL Creatinine 0.64 (0.52-1.04) mg/dL Estimated GFR > 60 (>60) mL/min BUN/Creatinine Ratio 12.5 (6-22) Glucose 115 H (70-100) mg/dL Calcium 9.9 (8.4-10.2) mg/dL Total Bilirubin 1.1 (0.2-1.3) mg/dL AST 26 (14-36) IU/L ALT 21 (<35) IU/L Alkaline Phosphatase 46 (38-126) U/L Total Protein 7.7 (6.3-8.2) g/dL Albumin 4.6 (3.5-5.0) g/dL Globulin 3.1 (1.7-4.1) g/dL Albumin/Globulin Ratio 1.5 (1.0-2.8) Ur Bilirubin Confirm Positive H (Negative) Urine RBC None seen (0-5/HPF) Urine WBC 5-10/hpf H (0-5/HPF) Ur Squamous Epith Cells 10-30 /hpf H (0-5/HPF) Urine Bacteria Many (>30) H (None) Urine Mucus 1+ H (Negative) Ur Culture Indicated? Specimen cultured Vol Urine Centrifuged 10ml (spun) Urine Dip Bedside Urine Glucose Negative Bedside Urine Bilirubin + 1 Bedside Urine Ketone ++ 40 Urine Specific [place] 1.030 Bedside Urine Occult Blood - Negative Bedside Urine pH 6.0 Bedside Urine Protein + 30 Bedside Urine Urobilinogen - Negative Bedside Urine Nitrite - Negative Bedside Urine Leukocytes - Negative Esterase [facility] Narrative Medical decision making narrative: Patient returns here after leaving against medical advice yesterday for hyperemesis. Patient is . Patient does not give a reason why she left yesterday. I did contact OBGYN and they will admit patient again. Denies any vaginal bleeding or discharge or fluid leak. Patient is 12 weeks . Patient does have history of marijuana use. Patient does have history of cyclic vomiting syndrome as well. After history and exam, CBC CMP urinalysis Compazine Benadryl normal saline head admit [facility] Medical records reviewed: Emergency department notes and admission notes from yesterday. Differential considered: Includes but not limited to hyperemesis gravidarum dehydration cyclic vomiting cannabinoid hyperemesis syndrome Lab Test results independently reviewed as above. Pertinent findings: WBC 17.6 likely from demargination/vomiting, no fever here, hemoglobin 12.4 sodium 136 potassium 3.7 bicarb 17 BUN 8 creatinine 0.64 GFR greater than 60 Consultations: 2:59 p.m.. Spoke with OBGYN, Dr. Mcmanus, she will admit patient Re-evaluations: 3:05 p.m.. Updated patient and she does agree for admission. Discussion: Appropriate for admission for hyperemesis gravidarum Diagnosis: Hyperemesis gravidarum Discharge Plan Departure Patient Disposition: Admitted as Observation Clinical Impression: Hyperemesis gravidarum Admit Date/Time: 07/19/24 14:57 Admit Provider: Destiny Mcmanus
[2024-07-19 14:57] VITALS: BP 145/78; PULSE 66
[2024-07-19] MEDS: PROCHLORPERAZINE 10 MG/2 ML VIAL IV (14:57)
[2024-07-19] MEDS: diphenhydrAMINE 50 MG/ML VIAL IV (14:57)
[2024-07-19 16:44] VITALS: BMI 44.1
[2024-07-19 16:58] VITALS: BP 126/76; PULSE 72; RESP 16; TEMP 36.3; O2SAT 97
[2024-07-19] MEDS: SODIUM CHLORIDE 0.9% 1,000 ML 150 ML IV (17:00)
--- NOTE | 2024-07-19 17:04 | P.HPOB_ITS ---
History of Present Illness History of Present Illness Reason for admission: other (Hyperemesis in ) Narrative: Sherly Powers is a 24 year old presumed to be about 13 weeks who was admitted from the emergency room for hyperemesis. The patient presented to both [facility] and [facility] with complaints of hyperemesis. The patient was going to be admitted for IV hydration last night but she left without being admitted. Patient returned to the hospital complaining of continued nausea and vomiting. The patient states that she had hyperemesis throughout her prior . She would not answer if she had a PICC line during that . There are multiple records of patient being seen in the emergency room for nausea and vomiting when she was not . Workup at that time was negative. Patient states her mother also had issues with hyperemesis. In the records there is of the diagnosis of possible bipolar disorder but the patient would not respond to the question of bipolar disorder medication or counseling. Patient states no to any medical illnesses such as diabetes, hypertension, thyroid disorder. [facility] Medical History Cannabis hyperemesis syndrome concurrent with and due to cannabis abuse Social History household members: spouse and children Smoking Status: Current every day smoker alcohol intake: current substance use type: marijuana Meds Home Medications and Allergies Home Medications Medication Instructions Recorded Confirmed Type bupropion HCl 75 mg tablet 2 tab PO BID ##0 07/10/17 12/11/18 History trazodone 50 mg tablet PO HS ##0 07/10/17 History ondansetron 4 mg disintegrating 4 mg PO Q6-8H PRN nausea and 12/11/18 Rx tablet vomiting #10 tabs ondansetron 4 mg disintegrating 4 mg sublingual Q6HP PRN Vomiting 12/11/18 12/11/18 History tablet (Zofran ODT) metoclopramide HCl 10 mg tablet 10 mg PO Q6H PRN nausea and 12/18/18 Rx vomiting #20 tabs multivit no.42-iron 38 1 cap PO DAILY #30 caps 01/27/19 Rx mg-methyltetrahydfolate 1 mg-dha 225 mg capsule ondansetron 4 mg disintegrating 4 mg PO Q8H Nausea vomiting #14 02/11/19 Rx tablet tabs ondansetron 4 mg disintegrating 4 mg PO TID-QID PRN nausea and 06/12/21 Rx tablet vomiting #10 tabs promethazine 25 mg rectal 25 mg MA Q4-6H PRN nausea and 06/12/21 Rx suppository vomiting #12 ea haloperidol 2 mg tablet 2 mg PO TID PRN nausea #30 tabs 02/22/24 Rx Allergies Allergy/AdvReac Type Severity Reaction Status Date / Time No Known Allergies Allergy Verified 02/22/24 13:00 Review of Systems Review of Systems Narrative: Patient very sleepy during evaluation. Difficult for her to give more than yes or no answers. Patient denies vaginal bleeding. Exam Vital Signs (past 8 hours): - 07/19/24 13:21 07/19/24 14:57 Temperature 99.1 F Pulse Rate 84 66 Respiratory Rate 20 Blood Pressure 122/74 145/78 H Pulse Oximetry 98 Oxygen Delivery Method Room Air Oxygen Delivery Method Room Air Narrative Exam Narrative: Patient very sleepy. Lungs are clear to auscultation percussion. Heart is regular rate and rhythm no S3-S4 murmurs. No thyromegaly. Abdomen is soft, nontender with no palpable organomegaly. Extremities without edema and nontender. Objective Labs 07/19/24 13:39 07/19/24 13:39 Labs: Laboratory Results - last 24 hr 07/19/24 07/19/24 13:39 13:48 WBC 17.6 H RBC 4.10 Hgb 12.4 Hct 34.8 L MCV 85.0 MCH 30.2 MCHC 35.5 RDW 13.0 Plt Count 277 Neut % (Auto) 89.2 H Lymph % (Auto) 4.5 L Roane % (Auto) 6.0 Eos % (Auto) 0.0 L Baso % (Auto) 0.3 Neut # (Auto) 38838 H Lymph # (Auto) 800 L Roane # (Auto) 1000 H Eos # (Auto) 0 Baso # (Auto) 0 Sodium 136 L Potassium 3.7 Chloride 106 Carbon Dioxide 17 L BUN 8 Creatinine 0.64 Estimated GFR > 60 BUN/Creatinine Ratio 12.5 Glucose 115 H Calcium 9.9 Total Bilirubin 1.1 AST 26 ALT 21 Alkaline Phosphatase 46 Total Protein 7.7 Albumin 4.6 Globulin 3.1 Albumin/Globulin Ratio 1.5 Ur Bilirubin Confirm Positive H Urine RBC None seen Urine WBC 5-10/hpf H Ur Squamous Epith Cells 10-30 /hpf H Urine Bacteria Many (>30) H Urine Mucus 1+ H Ur Culture Indicated? Specimen cultured Vol Urine Centrifuged 10ml (spun) Assessment & Plan Assessment and plan (1) Hyperemesis gravidarum: Status: Acute (2) 12 weeks gestation of : Status: Acute Assessment & Plan narrative: 24-year-old G4 P 1 presumably 12-13 weeks with nausea and vomiting and a history of hyperemesis both during and at other times admitted for IV hydration and treatment of nausea and vomiting. Time-Based Coding :: [TOTAL MINUTES] spent with patient and on the chart (including review of chart, obtaining history, exam, reviewing outside data, placing orders, documenting exam and treatment plan, and counseling patient) on [DATE].
[2024-07-19] MEDS: ONDANSETRON 4 MG ODT SL ×2 (17:25→21:44)
[2024-07-19] MEDS: THIAMINE 100 MG TABLET PO (17:59)
--- NOTE | 2024-07-19 18:28 | PC.NURSE ---
Pt arrived to floor from ED @ 1605 Sleepy, now willing to answer questions. Denies discomfort VSS IVF infusing at 150cc/hr via pump into RAC Pt sleeping Call light w/in reach, bed alarm on for pt sasfety. Continue w/plan of care.
[2024-07-19 20:00] VITALS: BP 145/83; PULSE 74; RESP 24; TEMP 36.6; O2SAT 97
[2024-07-19] MEDS: METOCLOPRAMIDE 10 MG/2 ML INJ IV (20:20)
[2024-07-19] MEDS: diphenhydrAMINE 50 MG/ML VIAL 25 MG IV (20:51)
[2024-07-19] MEDS: HALOPERIDOL 5 MG/ML VIAL IV (22:16)
--- NOTE | 2024-07-20 01:10 | PC.NURSE ---
At approx 2200 this RN was notified by patient's primary RN that the patient wanted to leave AMA. This RN went to discuss plan of care with patient, and suggested one more medication to try that may alleviate the patient's symptoms, but may take up to 30 minutes to take effect. Patient was agreeable to plan. Provider contacted via phone at 2209, and TORB 5 mg IVP haldol one time dose. This RN discussed how the medication would work and potential side effects, and administered the medication at 2216. Approx 15 min later, patient pressed call bergman and requested to leave. This RN informed her that the medication may not have had time to take effect, but if she truly wanted to leave against medical advice, we could facilitate that for her. This RN asked if she had transport, patient informed her that family was en route to pick her up. This RN extensively discussed treatment options and outcomes, and ensured that the patient was able to verbalize a plan of action upon returning home. This RN arrived at 2250 with AMA forms as well as a discharge packet including discharge instructions for pt's admitting diagnosis. IV removed, absence confirmed. All patient belongings accounted for. Patient's transport arrived, and patient was assisted out at 2255.
--- NOTE | 2024-07-20 12:41 | PM.DS.IH.1 ---
History of Present Illness History of Present Illness Chief complaint: Hyperemesis, possible UTI, 13 week gestation Narrative: Patient presented to the emergency room for the 2nd night in a row complaining of emesis. Patient was to be admitted the night before but she decided not to proceed with admission. She returned to the emergency room and was admitted for IV hydration for hyperemesis. Discharge Providers Provider Date of admission: 07/19/24 14:57 Discharge Date: 07/19/24 Primary care physician: Davi Thompson MD Discharge provider: Destiny Mcmanus MD Summary Hospital Course Discharge Diagnosis: Hyperemesis Hospital Course: Patient was admitted from the emergency room for IV hydration for hyperemesis. When I initially evaluated her she was sleepy and would not answer questions. She continued to have some nausea and vomiting and medications were switched from ondansetron to Reglan and Benadryl. The patient was still having nausea and vomiting and we were discussing a different nausea medicine when the patient decided that she would leave against medical advice. Status at Discharge Cognitive/behavioral status at discharge: oriented Functional status at discharge: independent ambulation Overall status at discharge: patient is not back to baseline Time Spent with Patient Time spent: Less than 30 minutes Exam Vital Signs (past 8 hours): Oxygen Delivery Method Room Air Oxygen Flow Rate 0 Objective Labs 07/19/24 13:39 07/19/24 13:39 Labs: Laboratory Results - last 24 hr 07/19/24 07/19/24 13:39 13:48 WBC 17.6 H RBC 4.10 Hgb 12.4 Hct 34.8 L MCV 85.0 MCH 30.2 MCHC 35.5 RDW 13.0 Plt Count 277 Neut % (Auto) 89.2 H Lymph % (Auto) 4.5 L Wilkin % (Auto) 6.0 Eos % (Auto) 0.0 L Baso % (Auto) 0.3 Neut # (Auto) 89464 H Lymph # (Auto) 800 L Wilkin # (Auto) 1000 H Eos # (Auto) 0 Baso # (Auto) 0 Sodium 136 L Potassium 3.7 Chloride 106 Carbon Dioxide 17 L BUN 8 Creatinine 0.64 Estimated GFR > 60 BUN/Creatinine Ratio 12.5 Glucose 115 H Calcium 9.9 Total Bilirubin 1.1 AST 26 ALT 21 Alkaline Phosphatase 46 Total Protein 7.7 Albumin 4.6 Globulin 3.1 Albumin/Globulin Ratio 1.5 Ur Bilirubin Confirm Positive H Urine RBC None seen Urine WBC 5-10/hpf H Ur Squamous Epith Cells 10-30 /hpf H Urine Bacteria Many (>30) H Urine Mucus 1+ H Ur Culture Indicated? Specimen cultured Vol Urine Centrifuged 10ml (spun) PFSH Medical History Cannabis hyperemesis syndrome concurrent with and due to cannabis abuse Social History household members: spouse and children Smoking Status: Current every day smoker alcohol intake: current substance use type: marijuana Discharge Assessment & Plan Assessment and Plan Assessment: 13 week gestation with long history nausea and vomiting and a history of hyperemesis with her previous who was admitted for IV hydration and medications to help control nausea and vomiting. Plan of Treatment: Patient decided to leave Against Medical Advice. Discharge Plan Discharge Plan Patient Disposition: Left Against Medical Advice Discharge orders & Medications Discharge Orders: Discharge (Order); Ordered 07/19/24 Ordered By: Destiny Mcmanus Prescriptions: No Action bupropion HCl 75 MG tablet 2 tab PO BID Qty: 0 trazodone 50 MG tablet PO HS Qty: 0 ondansetron 4 mg tablet,disintegrating 4 mg PO Q8H Qty: 14 0RF ondansetron 4 mg tablet,disintegrating 4 mg PO TID-QID PRN (Reason: nausea and vomiting) Qty: 10 0RF promethazine 25 mg suppository 25 mg ID Q4-6H PRN (Reason: nausea and vomiting) Qty: 12 0RF ondansetron [Zofran ODT] 4 MG tablet,disintegrating 4 mg Sublingual Q6HP PRN (Reason: Vomiting) ondansetron 4 mg tablet,disintegrating 4 mg PO Q6-8H PRN (Reason: nausea and vomiting) Qty: 10 0RF metoclopramide HCl 10 mg tablet 10 mg PO Q6H PRN (Reason: nausea and vomiting) Qty: 20 0RF multivit no.[id number]-qmeple-dha 38-1-225 mg capsule 1 cap PO DAILY Qty: 30 0RF haloperidol 2 mg tablet 2 mg PO TID PRN (Reason: nausea) Qty: 30 0RF Follow up/Referrals: Davi Thompson MD [Primary Care Provider] - Visit Report/Discharge Packet Instructions: Hyperemesis Gravidarum, DI for Hyperemesis Gravidarum Stand Alone Forms: Patient Portal/API, Stroke Signs & Symptoms Discharge Data Primary Care Provider: Davi Thompson Attending Provider: Destiny Mcmanus Admit Date/Time: 07/19/24 14:57 IH PROFEE Charge Codes Discharge inpatient/observation: [id number]
== END 2024-07-19 22:55 | disposition left against medical advice (07) ==
LOC: ED 14:15 → AC 14:58
PROVIDERS: Admitting Provider Specialist; Emergency Provider Emergency Medicine; Family Provider Internal Medicine; PCP Internal Medicine; Referring Provider Emergency Medicine; Visit Provider Specialist
DX: O21.0 Mild hyperemesis gravidarum (principal); O99.281 Endocrine, nutritional and metabolic diseases complicating pregnancy, first trimester; E86.0 Dehydration; O99.331 Smoking (tobacco) complicating pregnancy, first trimester; F17.210 Nicotine dependence, cigarettes, uncomplicated; O99.321 Drug use complicating pregnancy, first trimester; F12.10 Cannabis abuse, uncomplicated; Z3A.12 12 weeks gestation of pregnancy; O16.1 Unspecified maternal hypertension, first trimester; R73.9 Hyperglycemia, unspecified; Z53.29 Procedure and treatment not carried out because of patient's decision for other reasons
CPT/HCPCS: 36415; 80053; 80305; 81001; 81003; 81015; 85025; 87086; 96361; 96365; 96374; 96375; 96376; 99284; G0378; J0780; J1200; J1630; J2405; J2765

== ENCOUNTER → 2024-09-13 07:29 | Outpatient (CLI) | payer OTHER, SELFPAY ==
--- NOTE | 2024-09-13 07:31 | DI.US.S_ITS ---
PROCEDURE: US OB >= 14 WEEKS FETUS INDICATIONS: 20 WEEK ANATOMY SCAN OUTSIDE/PRIOR DATING DATA: Last menstrual period (LMP): 04/26/2024. LMP-based estimated date of delivery (RAY): 01/31/2025. First dating scan (date and location): Not applicable. Estimated date of delivery (RAY) from first dating scan: Not applicable. The calculations are made using the clinical RAY of 01/21/2025. TECHNIQUE: Real-time scanning was performed of the fetus, with image documentation and biometric measurements. Endovaginal scanning: No COMPARISON: None. FINDINGS: General: A single living intrauterine gestation is present. Presentation: Cephalic. Placenta: Placental position is anterior , without previa. Amniotic fluid index: 12.8 cm, normal range is 5-24 cm. Single deepest vertical pocket is 4.1 cm. heart rate: 163 beats per minute. Maternal cervical canal: 3.2 cm long. Normal lower limit is 2.5 cm. biometrics: Biparietal diameter: 4.5 cm, 19 week 4 day Head circumference: 16.4 cm, 19 week 1 day Abdominal circumference: 14.0 cm, 19 week 3 day Femur length: 3.1 cm, 19 week 4 day Clinically estimated gestational age: 20 week 0 day Composite gestational age from present scan: 19 week 3 day Estimated weight and percentile: 294, 19 percentile Anatomic survey: Neuro: Ventricles are non-dilated at less than 10 mm. Cisterna magna is normal at 3-11 mm. Cerebellum is normal in size and morphology. Nuchal skin fold: Normal at less than 6 mm between 14-21 weeks gestational age. Face: Nose and lips, facial profile are normal. Spine: No evidence for spina bifida. Heart: 4-chambered heart is present, with normal ventricular outflow tracts. Diaphragm: Diaphragm is intact. Stomach: Left-sided stomach is present. Kidneys: No hydronephrosis. Normal is less than 5 mm in 2nd trimester, less than 7 mm in 3rd trimester. Cord: 3-vessel cord has orthotopic insertion. Bladder: Normal in size. Extremities: All 4 extremities identified. IMPRESSION: Single live intrauterine consistent with 19 week 3 day gestation by current ultrasound Normal anatomic survey Approved by: Raheem Goodwin M.D. on 09/13/2024 at 16:39
== END ==
LOC: US 07:29
PROVIDERS: Family Provider Internal Medicine; Referring Provider Advanced Practice Midwife; Visit Provider Advanced Practice Midwife
DX: Z34.92 Encounter for supervision of normal pregnancy, unspecified, second trimester (principal); Z3A.20 20 weeks gestation of pregnancy
CPT/HCPCS: 76811